=== PATIENT | female | born 1965 | race African-American/Black ===

== ENCOUNTER 2017-01-13 10:44 | Inpatient (IN) | payer OTHER ==
[2017-01-13] MEDS ORDERED: SODIUM CHLORIDE 0.9% 1,000 ML IV STA (11:06)
[2017-01-13 11:28] LABS: Basophils % (A) 0 %; CHCM 31.3; Eosinophils # (A) 0.2 k/uL (0-0.7); Eosinophils % (A) 3 %; HCT 38.7 % (34.0-46.0); HDW 2.65; HGB 12.3 gm/dL (11.4-16.0); Hypochromasia Slight; Luc # (Auto) 0.16; Luc % (Auto) 3; Lymphocytes # (A) 1.4 k/uL (1.0-4.8); Lymphocytes % (A) 23 %; MCH 26.4 pg (25.0-35.0); MCHC 31.8 g/dL (31.0-37.0); MCV 83.1 fL (80.0-100.0); Mean Platelet Volume 6.9; Monocytes # (A) 0.3 k/uL (0-1.0); Monocytes % (A) 5 %; Neutrophils # (A) 3.9 k/uL (1.3-7.7); Neutrophils % (A) 66 %; RBC 4.66 m/uL (3.80-5.40); WBC (Perox) 6.15
--- NOTE | 2017-01-13 11:35 | XR ---
EXAMINATION TYPE: XR chest 2V DATE OF EXAM ORDERED: 01/13/2017 11:31 AM HISTORY: Chest Pain. REFERENCE: None. FINDINGS: The lungs are clear. Pleural spaces are clear. Heart size is normal. IMPRESSION: NORMAL CHEST.
[2017-01-13 11:45] LABS: Prothrombin Time 9.8 sec (9.0-12.0)
[2017-01-13 11:46] LABS: Creatine Kinase 85 U/L (30-135); Partial Thromboplastin Time 22.6 sec (22.0-30.0)
[2017-01-13 11:48] LABS: ALT 20 U/L (9-52); AST 21 U/L (14-36); Alkaline Phosphatase 82 U/L (38-126); Anion Gap 9 mmol/L; Blood Urea Nitrogen 12 mg/dL (7-17); Calcium 9.9 mg/dL (8.4-10.2); Carbon Dioxide 30 mmol/L (22-30); Chloride 102 mmol/L (98-107); Glucose 102 mg/dL (74-99); Non-African American GFR(MDRD) >60 (>60 ml/min/1.73 sqM); Potassium 4.8 mmol/L (3.5-5.1); Sodium 141 mmol/L (137-145); Total Bilirubin 0.5 mg/dL (0.2-1.3); Total Protein 7.9 g/dL (6.3-8.2)
--- NOTE | 2017-01-13 11:56 | ED ---
General Adult HPI - General Chief complaint: Chest Pain Stated complaint: chest pain Time Seen by Provider: 01/13/17 10:51 Source: patient, RN notes reviewed, old records reviewed Mode of arrival: wheelchair Limitations: no limitations - History of Present Illness Initial comments: This is a 31-year-old female with chest pain. Patient has no medical she would does not see a doctor. No high blood pressure not cholesterol no diabetes per history. Complaining of left-sided chest pain range her back shows of breath, she states on and off for about 3 months noticed to be worse with exertion but no fevers cough or congestion. No significant shortness of breath. Patient states medications he takes Benadryl which she takes for itching, patient is a diffuse body rash spares her face with severe itching. Patient states she itches all the time and nothing makes it better. Patient denies any history of travel history, no known sick contacts. No fevers - Related Data Home Medications Medication Instructions Recorded Confirmed Ascorbic Acid [Vitamin C] 500 mg PO DAILY 01/13/17 01/13/17 Calcium/Magnesium/Zinc 1 tab PO DAILY 01/13/17 01/13/17 [Xohrdql-Ltgsncvma-Jcna Tablet] diphenhydrAMINE [Benadryl] 25 mg PO Q1H 01/13/17 01/13/17 Allergies Allergy/AdvReac Type Severity Reaction Status Date / Time No Known Allergies Allergy Verified 01/13/17 10:45 Review of Systems ROS Statement: Those systems with pertinent positive or pertinent negative responses have been documented in the HPI. ROS Other: All systems not noted in ROS Statement are negative. Past Medical History Past Medical History: No Reported History History of Any Multi-Drug Resistant Organisms: None Reported Past Surgical History: Cholecystectomy Past Psychological History: No Psychological Hx Reported Smoking Status: Never smoker Past Alcohol Use History: None Reported Past Drug Use History: None Reported General Exam Limitations: no limitations General appearance: alert, in no apparent distress Head exam: Present: atraumatic, normocephalic, normal inspection Eye exam: Present: normal appearance, PERRL, EOMI. Absent: scleral icterus, conjunctival injection, periorbital swelling ENT exam: Present: normal exam, mucous membranes moist Neck exam: Present: normal inspection. Absent: tenderness, meningismus, lymphadenopathy Respiratory exam: Present: normal lung sounds bilaterally. Absent: respiratory distress, wheezes, rales, rhonchi, stridor Cardiovascular Exam: Present: regular rate, normal rhythm, normal heart sounds. Absent: systolic murmur, diastolic murmur, rubs, gallop, clicks GI/Abdominal exam: Present: soft, normal bowel sounds. Absent: distended, tenderness, guarding, rebound, rigid Extremities exam: Present: normal inspection, full ROM, normal capillary refill. Absent: tenderness, pedal edema, joint swelling, calf tenderness Back exam: Present: normal inspection Neurological exam: Present: alert, oriented X3, CN II-XII intact Psychiatric exam: Present: normal affect, normal mood Skin exam: Present: warm, dry, intact, normal color. Absent: rash Course Vital Signs 01/13/17 01/13/17 01/13/17 10:45 12:49 14:15 Temperature 97.5 F L Pulse Rate 87 73 79 Respiratory 17 16 18 Rate Blood Pressure 136/92 146/76 134/62 O2 Sat by Pulse 100 91 L Oximetry EKG Findings - EKG Comments: EKG Findings:: EKG shows normal sinus rhythm rate of 80, UT 160, QRS 74, QTC 447 Medical Decision Making - Medical Decision Making 51 female to ER chest pain. Patient presents today to the ER with chest pain and a rash that she is regular. Rash for months. Patient had recent chest pain and multiple recent flights. Patient does have a CT which is positive for PE. Patient will be admitted for evaluation and treatment of large PE - Lab Data Result diagrams: 01/13/17 11:10 01/13/17 11:10 Lab Results 01/13/17 01/13/17 01/13/17 Range/Units 11:10 11:10 11:10 WBC 6.0 (3.8-10.6) k/uL RBC 4.66 (3.80-5.40) m/uL Hgb 12.3 (11.4-16.0) gm/dL Hct 38.7 (34.0-46.0) % MCV 83.1 (80.0-100.0) fL MCH 26.4 (25.0-35.0) pg MCHC 31.8 (31.0-37.0) g/dL RDW 15.0 (11.5-15.5) % Plt Count 339 (150-450) k/uL Neutrophils % 66 % Lymphocytes % 23 % Monocytes % 5 % Eosinophils % 3 % Basophils % 0 % Neutrophils # 3.9 (1.3-7.7) k/uL Lymphocytes # 1.4 (1.0-4.8) k/uL Monocytes # 0.3 (0-1.0) k/uL Eosinophils # 0.2 (0-0.7) k/uL Basophils # 0.0 (0-0.2) k/uL Hypochromasia Slight PT (9.0-12.0) sec INR (<1.1) APTT (22.0-30.0) sec D-Dimer (<0.60) mg/L FEU Sodium 141 (137-145) mmol/L Potassium 4.8 (3.5-5.1) mmol/L Chloride 102 (98-107) mmol/L Carbon Dioxide 30 (22-30) mmol/L Anion Gap 9 mmol/L BUN 12 (7-17) mg/dL Creatinine 0.85 (0.52-1.04) mg/dL Est GFR (MDRD) Af Amer >60 (>60 ml/min/1.73 sqM) Est GFR (MDRD) Non-Af >60 (>60 ml/min/1.73 sqM) Glucose 102 H (74-99) mg/dL Calcium 9.9 (8.4-10.2) mg/dL Magnesium 2.0 (1.6-2.3) mg/dL Total Bilirubin 0.5 (0.2-1.3) mg/dL AST 21 (14-36) U/L ALT 20 (9-52) U/L Alkaline Phosphatase 82 (38-126) U/L Total Creatine Kinase 85 (30-135) U/L CK-MB (CK-2) 0.5 (0.0-2.4) ng/mL CK-MB (CK-2) Rel Index 0.6 Troponin I <0.012 (0.000-0.034) ng/mL Total Protein 7.9 (6.3-8.2) g/dL Albumin 4.3 (3.5-5.0) g/dL Lipase 98 (23-300) U/L // Range/Units 11:10 WBC (3.8-10.6) k/uL RBC (3.80-5.40) m/uL Hgb (11.4-16.0) gm/dL Hct (34.0-46.0) % MCV (80.0-100.0) fL MCH (25.0-35.0) pg MCHC (31.0-37.0) g/dL RDW (11.5-15.5) % Plt Count (150-450) k/uL Neutrophils % % Lymphocytes % % Monocytes % % Eosinophils % % Basophils % % Neutrophils # (1.3-7.7) k/uL Lymphocytes # (1.0-4.8) k/uL Monocytes # (0-1.0) k/uL Eosinophils # (0-0.7) k/uL Basophils # (0-0.2) k/uL Hypochromasia PT 9.8 (9.0-12.0) sec INR 1.0 (<1.1) APTT 22.6 (22.0-30.0) sec D-Dimer 3.67 H (<0.60) mg/L FEU Sodium (137-145) mmol/L Potassium (3.5-5.1) mmol/L Chloride (98-107) mmol/L Carbon Dioxide (22-30) mmol/L Anion Gap mmol/L BUN (7-17) mg/dL Creatinine (0.52-1.04) mg/dL Est GFR (MDRD) Af Amer (>60 ml/min/1.73 sqM) Est GFR (MDRD) Non-Af (>60 ml/min/1.73 sqM) Glucose (74-99) mg/dL Calcium (8.4-10.2) mg/dL Magnesium (1.6-2.3) mg/dL Total Bilirubin (0.2-1.3) mg/dL AST (14-36) U/L ALT (9-52) U/L Alkaline Phosphatase (38-126) U/L Total Creatine Kinase (30-135) U/L CK-MB (CK-2) (0.0-2.4) ng/mL CK-MB (CK-2) Rel Index Troponin I (0.000-0.034) ng/mL Total Protein (6.3-8.2) g/dL Albumin (3.5-5.0) g/dL Lipase (23-300) U/L - Radiology Data Radiology results: report reviewed (Chest x-ray is negative CTAs positive for large PE), image reviewed Critical Care Time Critical Care Time: Yes Total Critical Care Time: 31 Disposition Clinical Impression: Chest pain, Acute pulmonary embolism Disposition: ADMITTED IP TO THIS [facility] Condition: Serious Referrals: Charisma Escamilla MD [Primary Care Provider] - 1-2 days
[2017-01-13 11:58] LABS: Creatine Kinase MB 0.5 ng/mL (0.0-2.4); Troponin I <0.012 ng/mL (0.000-0.034)
[2017-01-13] MEDS ORDERED: RX INFO: IV CONTRAST WAS GIVEN 1 EACH MISC MISCELLANE PRN (12:05)
[2017-01-13] MEDS ORDERED: FAMOTIDINE 20 MG/2 ML VIAL IV STA (12:05)
[2017-01-13] MEDS ORDERED: methylPREDNISolone SOD SUCCI 125 MG/2 ML VIAL IV STA (12:05)
[2017-01-13] MEDS ORDERED: hydrOXYzine HCL 25 MG TAB PO STA (12:05)
--- NOTE | 2017-01-13 13:56 | CT ---
EXAMINATION TYPE: CT angio chest DATE OF EXAM: 01/13/2017 1:43 PM COMPARISON: NONE HISTORY: chest pain CT DLP: 601.3 mGycm Automated exposure control for dose reduction was used. CONTRAST: CTA scan of the thorax is performed with IV Contrast, patient injected with 75 mL of Omnipaque 350, p ulmonary embolism protocol. . FINDINGS: There is a 3.9 mm soft tissue nodule adjacent to the major fissure on the right, best seen on image 84. There is a second 2.8 mm nodule in the superior segment of the right lower lobe, best se en on image 61. There is a 2.8 mm nodule in the posterior basal segment of the right lower lobe best seen on image 91. There is a 4.1 mm nodule in a subpleural location in the lateral basal segment of t he left lower lobe, best seen on image 101. There is a 2.3 mm nodule in the lateral aspect of the lef t lower lobe, best seen on image 73. Several other smaller lesions are noted. There is bilateral axillary adenopathy. The largest on the left measures 1.6 cm. The largest on the r ight measures 1.4 cm. There is no significant mediastinal, internal mammary or hilar adenopathy. The contrast bolus is suboptimal. No large emboli are seen. The aorta is normal in caliber without evidence of dissection. There is no pleural or pericardial flu id. The heart is not enlarged. There is a small hiatal hernia present. Visualized portions of the upper abdomen are otherwise unrema rkable. There there is hypertrophic spondylosis within the spine and there are some sclerotic endplate change s. There is an area of sclerosis in the lateral aspect of the sternum, best seen on image 36. IMPRESSION: 1. SUBOPTIMAL STUDY DEMONSTRATING A LARGE PULMONARY EMBOLI. 2. MULTIPLE PULMONARY NODULES WELL A SCLEROTIC LESION WITHIN THE RIGHT SIDE OF THE STERNUM SUSP ICIOUS FOR METASTASES. 3. BILATERAL AXILLARY ADENOPATHY.
[2017-01-13] MEDS ORDERED: MORPHINE SULFATE 4 MG/ML SYRINGE IV PRN (14:33)
[2017-01-13] MEDS ORDERED: HEPARIN SODIUM,PORCINE 5,000 UNIT/ML 1 ML VIAL IV ONE (14:33)
[2017-01-13] MEDS ORDERED: HEPARIN SODIUM,PORCINE 5,000 UNIT/ML 1 ML VIAL IV PRN (14:33)
[2017-01-13] MEDS ORDERED: NITROGLYCERIN SL TABS 0.4 MG TAB SUBLINGUAL PRN (14:33)
[2017-01-13] MEDS ORDERED: ASPIRIN 81 MG CHEW PO STA (14:33)
[2017-01-13] MEDS: HEPARIN SODIUM,PORCINE/D5W PMX 25,000 UNIT in DEXTROSE/WATER 1 500ML.BAG IV SCH (14:56)
[2017-01-13 17:00] VITALS: BMI 32.6
[2017-01-13 18:47] LABS: Creatine Kinase 82 U/L (30-135)
[2017-01-13 19:00] LABS: Creatine Kinase MB 0.4 ng/mL (0.0-2.4); Troponin I <0.012 ng/mL (0.000-0.034)
--- NOTE | 2017-01-13 19:27 | US ---
EXAMINATION TYPE: US venous doppler duplex LE BI DATE OF EXAM: 01/13/2017 7:09 PM COMPARISON: NONE CLINICAL HISTORY: dvt/pe. SIDE PERFORMED: Bilateral VESSELS IMAGED: Common Femoral Vein Deep Femoral Vein Greater Saphenous Vein * Femoral Vein Popliteal Vein Small Saphenous Vein * Proximal Calf Veins (* superficial vessels) Right Leg: Negative for DVT Left Leg: Negative for DVT IMPRESSION: Normal exam. No evidence of deep venous thrombosis in both legs.
[2017-01-13] MEDS ORDERED: HYDROcodone/APAP 5-325MG 1 EACH TAB PO PRN (19:49)
[2017-01-13] MEDS ORDERED: TEMAZEPAM 15 MG CAP PO PRN (19:49)
[2017-01-13] MEDS ORDERED: ALPRAZolam 0.25 MG TAB PO PRN (19:49)
[2017-01-13] MEDS: diphenhydrAMINE 25 MG CAP PO PRN (20:50)
[2017-01-13] MEDS: diphenhydrAMINE 25 MG CAP PO SCH (21:21)
[2017-01-14 00:03] LABS: Creatine Kinase 69 U/L (30-135)
[2017-01-14 00:16] LABS: Creatine Kinase MB 0.3 ng/mL (0.0-2.4); Troponin I <0.012 ng/mL (0.000-0.034)
[2017-01-14 06:06] LABS: Basophils % (A) 0 %; CH 25.7; CHCM 30.6; Eosinophils # (A) 0.1 k/uL (0-0.7); Eosinophils % (A) 1 %; HCT 36.4 % (34.0-46.0); HGB 11.5 gm/dL (11.4-16.0); Hypochromasia Moderate; Luc # (Auto) 0.19; Luc % (Auto) 2; Lymphocytes # (A) 1.1 k/uL (1.0-4.8); Lymphocytes % (A) 11 %; MCH 26.6 pg (25.0-35.0); MCHC 31.7 g/dL (31.0-37.0); Mean Platelet Volume 7.2; Monocytes # (A) 0.5 k/uL (0-1.0); Monocytes % (A) 5 %; Neutrophils # (A) 8.3 k/uL (1.3-7.7); Neutrophils % (A) 82 %; RBC 4.34 m/uL (3.80-5.40); WBC 10.1 k/uL (3.8-10.6); WBC (Perox) 10.95
[2017-01-14 06:18] LABS: INR 1.1 (<1.1); Partial Thromboplastin Time 76.7 sec (22.0-30.0); Prothrombin Time 10.7 sec (9.0-12.0)
[2017-01-14] MEDS: HEPARIN SODIUM,PORCINE/D5W PMX 25,000 UNIT in DEXTROSE/WATER 1 500ML.BAG IV SCH (06:26)
[2017-01-14] MEDS: PANTOPRAZOLE 40 MG TABLET PO SCH (06:27)
[2017-01-14] MEDS: diphenhydrAMINE 25 MG CAP PO PRN (06:29)
[2017-01-14 06:32] LABS: Anion Gap 10 mmol/L; Calcium 9.4 mg/dL (8.4-10.2); Carbon Dioxide 23 mmol/L (22-30); Chloride 106 mmol/L (98-107); Cholesterol 184 mg/dL (<200); Glucose 154 mg/dL (74-99); HDL Cholesterol 58 mg/dL (40-60); Non-African American GFR(MDRD) >60 (>60 ml/min/1.73 sqM); Sodium 139 mmol/L (137-145); Triglycerides 97 mg/dL (<150)
[2017-01-14 06:52] LABS: Blood Urea Nitrogen 10 mg/dL (7-17); Potassium 4.5 mmol/L (3.5-5.1)
[2017-01-14] MEDS ORDERED: ASPIRIN 325 MG TAB PO SCH (09:00)
--- NOTE | 2017-01-14 09:49 | HP ---
DATE OF ADMISSION: 01/13/2017 CHIEF COMPLAINT: Chest pain as well as shortness of breath. HISTORY OF PRESENT ILLNESS: This 51-year-old lady with a past medical history of cholecystectomy, tubal ligation, and other multiple medical problems, not being followed by primary care physician in outpatient setting presented to [facility] Emergency room with complaints of chest pain left-sided and some shortness of breath. The shortness of breath has been going on for several months. The patient though it was something related to abdomen. The patient was taking Benadryl for itching. The patient was evaluated in the ER. D-dimer was found to be elevated at 3.67. Chest angio CT was done, which showed suboptimal technique, but reported as a large pulmonary embolus, multiple pulmonary nodules scattered were found and bilateral axillary adenopathy was noted. The patient was admitted for evaluation and treatment. The venous Doppler showed no DVT. There is no history of fever, rigors. No history of headache, loss of consciousness or seizures. PAST MEDICAL HISTORY: History of cholecystectomy, tubal ligation. MEDICATIONS: 1. Calcium with vitamin zinc. 2. Vitamin C. 3. Benadryl p.r.n. ALLERGIES: None. FAMILY HISTORY: History of pulmonary embolism and clotting disorder in mother. History of cancer, diabetes, heart problems, breast cancer, kidney failure. SOCIAL HISTORY: No history of smoking. No history of alcohol intake. Patient is working two jobs and stands a lot even moves around according to her. The patient flew to [place] last year. REVIEW OF SYSTEMS: ENT: No diminished hearing or diminished vision. CARDIOVASCULAR: As mentioned earlier. RESPIRATORY: As mentioned earlier. GI: No nausea. : No dysuria. NERVOUS SYSTEM: No numbness or weakness. ALLERGY/IMMUNOLOGY: No asthma or hayfever. MUSCULOSKELETAL: As mentioned earlier. HEMATOLOGY: No history of anemia. ENDOCRINE: No history of diabetes or hypothyroidism. CONSTITUTIONAL: As mentioned earlier. DERMATOLOGY: Negative. RHEUMATOLOGY: Negative. PSYCHIATRY: As mentioned earlier. PHYSICAL EXAMINATION: Alert and oriented x3. Pulse 82, blood pressure 149/67, respirations 18, temperature 98.6, pulse ox 97% on 2-L. HEENT: Conjunctivae normal. Oral mucosa moist. NECK: No jugular venous distention. No thyroid enlargement, no carotid bruit, no lymph node enlargement. CARDIOVASCULAR: S1 and S2, muffled. No S3, no S4. RESPIRATORY: Breath sounds diminished at the bases. No rhonchi, no crackles. ABDOMEN: Soft, nontender, no mass palpable. LEGS: No edema, no swelling. NERVOUS SYSTEM: Higher function as mentioned. Moves all four limbs. No focal motor deficits. LYMPHATIC: No lymphadenopathy in the neck, axillae or groin. SKIN: No ulcer, rash or bleeding. LABS: CBC within normal limits. D-dimer is 3.67. Otherwise, glucose 102. ASSESSMENT: 1. Possible acute pulmonary embolism with shortness of breath. 2. Increased d-dimer. 3. Increased random blood sugar. 4. Family history of coagulopathy. 5. Cholecystectomy. 6. Tubal ligation. 7. History of anxiety. RECOMMENDATIONS AND DISCUSSION: In this 51-year-old woman who presents with multiple complex medical issues, we will monitor the patient closely. We will initiate IV heparin per PE protocol, obtained consultation with Dr. Hodges. Otherwise, monitor PTT closely. Other than that, I would recommend ultrasound, which has been done which is negative. I also recommend initiating the patient on Xarelto once the patient is anticoagulated. Guarded prognosis because of multiple complex medical issues. Further recommendations to follow. I also recommend the patient follow up with a primary physician closely as well. The patient and family understands and agrees. The patient will need further genetic testing post anticoagulation. ANAMIKA
--- NOTE | 2017-01-14 10:44 | P.CNPUL ---
History of Present Illness Consult date: 01/14/17 Requesting physician: Aneta Aleman Reason for consult: dyspnea, chest pain Chief complaint: Shortness of breath and chest pain History of present illness: This is a 52-year-old -[place] female with no previous medical history except for obesity, no previous history of underlying cardiac or pulmonary disease, patient works at [employer], and while at work, the patient had a sudden episode of substernal pressure, and shortness of breath. Patient came into the ER, and apparently she has been having these intermittent episodes for the last few months. CT of the chest was done in the ER, and this was read by Dr. Rodrigez, and a very unusual fashion, in the body of the report and there was no evidence of pulmonary embolism, but in the bottom of the report which is the conclusion, he mentioned evidence of large pulmonary emboli. I reviewed the CT of the chest myself, and I saw no evidence whatsoever of pulmonary emboli, then I called Dr. Rodrigez, and he agreed that there was a confusing report hence he added an addendum which specifically stated that there is no evidence of pulmonary emboli. In the meantime I discontinued the patient's heparin, I did recommend a VQ scan to put the issue to rest, because the CT study was suboptimal. The nodules mentioned on the CT of the chest are all tiny and nonspecific, and my only recommendation about the nodules would be to consider repeat CT of the chest in the next 6 months. I have also discussed the axillary lymphadenopathy and this may have to be addressed on outpatient basis by her primary care physician were and the patient may need possibly a PET scan to see if these axillary nodes are hypermetabolic or even possibly consider ultrasound guided biopsy or excision of one of these nodes. The sternal area which was mentioned on the CT of the chest is again nonspecific, and my only recommendation would be outpatient bone scan. Patient also needs a mammogram to make sure that we are not dealing with breast cancer with possible metastases. As far as her chest pain is concerned, none of the findings on the CT of the chest to explain her chest pain, and I will go ahead and recommended cardiac evaluation on this patient. Review of Systems 14 point review of systems were obtained, please refer to pertinent positives and negatives in HPI. Past Medical History Past Medical History: No Reported History History of Any Multi-Drug Resistant Organisms: None Reported Past Surgical History: Cholecystectomy, Tubal Ligation Past Anesthesia/Blood Transfusion Reactions: No Reported Reaction Additional Past Anesthesia/Blood Transfusion Reaction / Comment(s): Patient stated that she has not had a blood transfusion. Also had no reaction to anesthesia in the past Past Psychological History: No Psychological Hx Reported, Anxiety Additional Psychological History / Comment(s): Mild anxiety. Smoking Status: Never smoker Past Alcohol Use History: None Reported Past Drug Use History: None Reported - Past Family History Mother Family Medical History: Cancer, Diabetes Mellitus Additional Family Medical History / Comment(s): "heart problems". Breast cancer. Kidney failure Medications and Allergies Home Medications Medication Instructions Recorded Confirmed Type Ascorbic Acid [Vitamin C] 500 mg PO DAILY 01/13/17 01/13/17 History Calcium/Magnesium/Zinc 1 tab PO DAILY 01/13/17 01/13/17 History [Bprfrvq-Qphxxdhxj-Zllx Tablet] diphenhydrAMINE [Benadryl] 25 mg PO Q1H 01/13/17 01/13/17 History Allergies Allergy/AdvReac Type Severity Reaction Status Date / Time No Known Allergies Allergy Verified 01/13/17 10:45 Physical Exam Vitals: Vital Signs Temp Pulse Pulse Resp BP BP Pulse Ox 01/14/17 08:00 97.2 F L 68 18 125/66 100 01/14/17 04:00 97.5 F L 77 17 134/78 99 01/14/17 00:00 97.1 F L 81 17 121/66 97 01/13/17 20:00 97.1 F L 85 17 129/69 99 01/13/17 16:46 97.7 F 82 16 139/91 100 01/13/17 15:57 98.6 F 82 18 149/67 97 Intake and Output 01/13/17 01/14/17 01/14/17 22:59 06:59 14:59 Intake Total 862 498.361 240 Output Total 400 1800 Balance 462 -1301.639 240 Intake: IV 160 Sodium Chloride 0.9% 1, 160 000 ml @ 999 mls/hr IV . Q1H1M [facility] Rx#:[id number] Intake, IV Titration 498.361 Amount Heparin Sodium,Porcine/ 498.361 D5w Pmx 25,000 unit In Dextrose/Water 1 500ml. bag @ 18 UNITS/KG/HR 32. 16 mls/hr IV .[id number] [facility] Rx#:[id number] Oral 702 240 Output: Urine 400 1800 Other: # Voids 1 0 Weight 89 kg 106.3 kg Physical Exam HEENT:[Neck is supple.] [No neck masses.] [No thyromegaly.] [No JVD.] Chest: [Clear throughout, no crackles, no rhonchi, no wheezes.] Cardiac Exam: [Normal S1 and S2, no S3 gallop, no murmur.] Abdomen: [Soft, nontender, no megaly, no rebound, no guarding, normal bowel sounds.] Extremities: [No clubbing, no edema, no cyanosis.] Neurological Exam: [No focal neurologic deficit.] Results - Laboratory Findings CBC and BMP: 01/14/17 05:48 01/14/17 05:48 PT/INR, D-dimer PT 10.7 sec (9.0-12.0) 01/14/17 05:48 INR 1.1 (<1.1) 01/14/17 05:48 D-Dimer 3.67 mg/L FEU (<0.60) H 01/13/17 11:10 Abnormal lab findings: Abnormal Labs 01/13/17 01/14/17 01/14/17 23:16 05:48 05:48 Neutrophils # 8.3 H APTT 74.9 H 76.7 H Glucose LDL Cholesterol, Calc 01/14/17 05:48 Neutrophils # APTT Glucose 154 H LDL Cholesterol, Calc 107 H - Diagnostic Findings CT scan - chest: image reviewed (Please refer to full note as mentioned earlier on the CT of the chest findings.) Assessment and Plan Plan: Impression: 1 acute episode of shortness of breath and chest pain, with elevated d-dimer, but the CT of the chest was suboptimal, and clearly did not show any evidence of large pulmonary emboli to explain her symptoms. Please refer to the addendum on the CT of the chest. In the meantime I will recommend VQ scan, and I will recommend cardiac evaluation. 2 nonspecific pulmonary nodules noted on CT of the chest all the nodules are tiny and again nonspecific, however I would recommend repeat CT of the chest in 6 months. 3 axillary lymphadenopathy which needs to be addressed on an outpatient basis by the primary care physician. May have to consider a PET scan on outpatient basis and possibly ultrasound guided needle biopsy of axillary nodes or surgical evaluation. 4 family history of breast cancer (mother) patient will need at least a mammogram on outpatient basis. Recommendation: Stop heparin, VQ scan, cardiac consultation, outpatient follow- up with the primary care physician regarding her axillary lymphadenopathy, mammography, consider bone scan and PET scan on outpatient basis. Time with Patient: Greater than 30
--- NOTE | 2017-01-14 11:32 | NM ---
EXAMINATION TYPE: NM pul vent and perfuse DATE OF EXAM: 01/14/2017 11:21 AM COMPARISON: NONE HISTORY: Shortness of breath. TECHNIQUE: Utilizing inhalation of 71.3 mCi Tc 99m DTPA aerosol and intravenous injection of 5.5 mCi of Tc 99m MAA, ventilation and perfusion images are acquired post injection in multiple projections. FINDINGS: Lung ventilation and perfusion is normal. There are no VQ mismatches. IMPRESSION: NORMAL NUCLEAR MEDICINE VENTILATION/PERFUSION LUNG SCAN.
[2017-01-14] MEDS: ASCORBIC ACID 500 MG TAB PO SCH (12:09)
[2017-01-14] MEDS: MULTIVITAMINS, THERA 1 EACH TAB PO SCH (12:09)
--- NOTE | 2017-01-14 14:33 | CONS ---
DATE OF CONSULTATION: Mrs. Shi is a 51-year-old female who is admitted through the emergency room with the complaint of intermittent chest pain. The patient has been having chest pain on and off for the last couple of days, actually the last 3 to 4 weeks, but yesterday the pain was more severe. The patient says the pain is in the substernal area and radiates to the back. It is sharp pain, comes and goes. The pain is associated with some local tenderness. Patient denies any nausea and vomiting. After admission to the ER the patient underwent CT scan. There was some confusion in the report about the pulmonary embolism. Patient also underwent a VQ scan, but there is no evidence of pulmonary embolism. Patient has small pulmonary nodules and axillary lymphadenopathy. Patient denies any history of diabetes or hypertension. Past medical history includes history of cholecystectomy, tubal ligation. REVIEW OF SYSTEMS: Patient is moderately active physically and without any symptoms of angina. SMOKING HISTORY: Patient never a smoker. Patient's home medications included vitamin C and Benadryl and can calcium and magnesium. Physical examinations at present reveals a 51-year-old female who does not appear to be in any acute distress. Patient's blood pressure is 125/66 mmHg, heart rate is 68 per minute. Head/ENT examination is negative. Neck is supple. There is no increase in jugular venous pressure. Both the carotid pulses are felt. There is no bruit. Chest is symmetrical. HEART: The PMI is not felt. First and second heart sounds are normal. There is no evidence of any murmur. Lungs are clinically clear to auscultation and percussion. Abdomen is soft. Liver and spleen are not enlarged. Bowel sounds are heard. EXTREMITIES: Peripheral troponins are 2+. EKG shows a normal sinus rhythm without any acute ischemic changes. Cardiac enzymes are normal. FINAL IMPRESSION: This patient has been having intermittent chest pain, which is suggestive of atypical chest wall pain. There is a mild chest wall tenderness noted. The work-up for pulmonary embolism is negative. RECOMMENDATIONS: We will obtain echo and Doppler study, treat the patient symptomatically with Motrin. If the patient's chest pains are better, we will schedule her for dobutamine echocardiographic study on Monday.
--- NOTE | 2017-01-14 15:41 | ECHOF ---
Referral Reason:PE MEASUREMENTS -------- HEIGHT: 165.1 cm WEIGHT: 106.1 kg BP: 134/62 IVSd: 0.8 cm (0.6 - 1.1) LVIDd: 4.4 cm (3.9 - 5.3) LVPWd: 1.0 cm (0.6 - 1.1) LVIDs: 2.7 cm LA Diam: 2.5 cm (2.7 - 3.8) RVIDd: 2.3 cm (< 3.3) LAESV Index (A-L): 27.43 ml/m Ao Diam: 2.9 cm (2.0 - 3.7) AV Cusp: 2.0 cm (1.5 - 2.6) EPSS: 0.5 cm MV E Derik: 0.79 m/s MV DecT: 291 ms MV A Derik: 0.70 m/s MV E/A Ratio: 1.14 RAP: 5.00 mmHg RVSP: 26.84 mmHg MV EF SLOPE: 94.91 mm/s (70 - 150) MV EXCURSION: 20.95 mm (> 18.000) FINDINGS -------- Sinus rhythm. This was a technically good study. The left ventricular size is normal. Left ventricular wall thickness is normal. Overall left ventricular systolic function is normal with, an EF between 60 - 65 %. The right ventricle is normal in size. Normal LA size by volume 22+/-6 ml/m2. The right atrium is normal in size. The aortic valve is trileaflet and appears structurally normal. Mild mitral regurgitation is present. Mild tricuspid regurgitation present. Right ventricular systolic pressure is normal at < 35 mmHg. The pulmonic valve is normal. There is no pulmonic regurgitation present. The aortic root size is normal. Normal inferior vena cava with normal inspiratory collapse consistent with estimated right atrial pressure of 5 mmHg. The pericardium is normal. CONCLUSIONS -------- 1. Sinus rhythm. 2. Mild mitral regurgitation is present. 3. Mild tricuspid regurgitation present. 4. Right ventricular systolic pressure is normal at < 35 mmHg. 5. The aortic root size is normal. 6. Normal inferior vena cava with normal inspiratory collapse consistent with estimated right atrial pressure of 5 mmHg. 7. The pericardium is normal. 8. This was a technically good study. 9. The left ventricular size is normal. 10. Left ventricular wall thickness is normal. 11. Overall left ventricular systolic function is normal with, an EF between 60 - 65 %. 12. The right ventricle is normal in size. 13. Normal LA size by volume 22+/-6 ml/m2. 14. The right atrium is normal in size. 15. The aortic valve is trileaflet and appears structurally normal. TRANSCRIPT EVALUATOR: Isabel Merritt RDCS
[2017-01-14] MEDS: IBUPROFEN 400 MG TAB PO SCH ×2 (16:03→21:10)
[2017-01-15] MEDS: PANTOPRAZOLE 40 MG TABLET PO SCH (06:31)
[2017-01-15 06:48] LABS: Basophils % (A) 1 %; CH 25.9; CHCM 30.7; Eosinophils # (A) 0.1 k/uL (0-0.7); Eosinophils % (A) 2 %; HDW 2.58; HGB 11.6 gm/dL (11.4-16.0); Hypochromasia Moderate; Luc # (Auto) 0.19; Luc % (Auto) 3; Lymphocytes # (A) 2.2 k/uL (1.0-4.8); Lymphocytes % (A) 30 %; MCH 25.8 pg (25.0-35.0); MCHC 30.5 g/dL (31.0-37.0); MCV 84.7 fL (80.0-100.0); Mean Platelet Volume 7.8; Monocytes # (A) 0.5 k/uL (0-1.0); Monocytes % (A) 7 %; Neutrophils # (A) 4.4 k/uL (1.3-7.7); Neutrophils % (A) 59 %; RBC 4.49 m/uL (3.80-5.40); RDW 15.5 % (11.5-15.5); WBC 7.4 k/uL (3.8-10.6); WBC (Perox) 8.09
[2017-01-15 07:24] LABS: Appearance,Urine Clear (Clear); Bilirubin,Urine Negative (Negative); Glucose,Urine (UA) Negative (Negative); Ketones,Urine Negative (Negative); Leukocyte Esterase,Urine Negative (Negative); Nitrite,Urine Negative (Negative); PH, Urine 5.5 (5.0-8.0); Protein,Urine Trace (Negative); Specific Gravity,Urine 1.022 (1.001-1.035); UA Billing (MACRO vs. MICRO) CHEM; Urobilinogen,Urine <2.0 mg/dL (<2.0)
[2017-01-15 07:30] LABS: Anion Gap 10 mmol/L; Blood Urea Nitrogen 11 mg/dL (7-17); Calcium 9.1 mg/dL (8.4-10.2); Carbon Dioxide 25 mmol/L (22-30); Chloride 106 mmol/L (98-107); Glucose 102 mg/dL (74-99); Non-African American GFR(MDRD) >60 (>60 ml/min/1.73 sqM); Potassium 4.4 mmol/L (3.5-5.1); Sodium 141 mmol/L (137-145)
--- NOTE | 2017-01-15 07:54 | PN ---
DATE OF SERVICE: 01/14/2017 This 51-year-old woman who was admitted with shortness of breath, and multiple symptomatology was reported to have large acute pulmonary embolism on the first CT scan. Apparently, the CAT scan report was revised later showing as no pulmonary embolism and Dr. Hodges from pulmonary ordered a VQ scan which showed normal nuclear medicine ventilation perfusion lung scan. The patient apparently was discontinued at this time. No palpitations. No shortness of breath. Mild chest pain was complained of. Cardiology is planning a stress test. Past medical history reviewed. Physical examination: Alert and oriented x3. Pulse 81, blood pressure 115/80, respiration 18, temperature 98.4, pulse ox 100% on 2 L. HEENT: Conjunctivae normal. NECK: No jugular venous distention. CARDIOVASCULAR: S1, S2 muffled. RESPIRATORY: Breath sounds diminished at the bases. No rhonchi, no crackles. ABDOMEN: Soft, nontender. No mass palpable. Legs: No edema. No swelling. Nervous system: Higher functions as mentioned earlier. Moves all four limbs. No focal motor or sensory deficits. LYMPHATICS: No lymph nodes palpable in the neck, axillae or groin. SKIN: No ulcer, rash or bleeding. LABS: CBC within normal limits. Otherwise, PTT noted. The glucose 154, LDL is 107. ASSESSMENT: 1. Shortness of breath and chest pain for further evaluation, large pulmonary embolism unlikely. 2. Increased d-dimer. 3. Increased random blood sugar. 4. Family history of coagulopathy. 5. Cholecystectomy. 6. History of tubal ligation. 7. History of anxiety. 8. Increased LDL. 9. Obesity with body mass index of 39. 10. FULL CODE. RECOMMENDATIONS AND DISCUSSION: In this 51-year-old woman who presented with multiple complex medical issues, we will monitor the patient closely, continue the current medications, continue symptomatic treatment. Otherwise, please refer to Dr. Hodges's note for further evaluation. Discussed with the patient and cardiology saw the patient. Possible stress test. Continue to monitor. Further recommendations to follow. Guarded prognosis and carpet. Work-up for pulmonary embolus was negative as reported by cardiology. See multiple reports for further details. Radiology reports and Dr. Hodges's for further information. [facility]
[2017-01-15] MEDS: IBUPROFEN 400 MG TAB PO SCH ×3 (08:21→21:54)
[2017-01-15] MEDS: diphenhydrAMINE 25 MG CAP PO PRN ×3 (08:21→22:16)
--- NOTE | 2017-01-15 11:14 | P.PN ---
Subjective Principal diagnosis: Atypical chest pain, possibly musculoskeletal. his is a 52-year-old -[place] female with no previous medical history except for obesity, no previous history of underlying cardiac or pulmonary disease, patient works at [employer], and while at work, the patient had a sudden episode of substernal pressure, and shortness of breath. Patient came into the ER, and apparently she has been having these intermittent episodes for the last few months. CT of the chest was done in the ER, and this was read by Dr. Rodrigez, and a very unusual fashion, in the body of the report and there was no evidence of pulmonary embolism, but in the bottom of the report which is the conclusion, he mentioned evidence of large pulmonary emboli. I reviewed the CT of the chest myself, and I saw no evidence whatsoever of pulmonary emboli, then I called Dr. Rodrigez, and he agreed that there was a confusing report hence he added an addendum which specifically stated that there is no evidence of pulmonary emboli. In the meantime I discontinued the patient's heparin, I did recommend a VQ scan to put the issue to rest, because the CT study was suboptimal. The nodules mentioned on the CT of the chest are all tiny and nonspecific, and my only recommendation about the nodules would be to consider repeat CT of the chest in the next 6 months. I have also discussed the axillary lymphadenopathy and this may have to be addressed on outpatient basis by her primary care physician were and the patient may need possibly a PET scan to see if these axillary nodes are hypermetabolic or even possibly consider ultrasound guided biopsy or excision of one of these nodes. The sternal area which was mentioned on the CT of the chest is again nonspecific, and my only recommendation would be outpatient bone scan. Patient also needs a mammogram to make sure that we are not dealing with breast cancer with possible metastases. As far as her chest pain is concerned, none of the findings on the CT of the chest to explain her chest pain, and I will go ahead and recommended cardiac evaluation on this patient. Patient was seen today on 01/15/2017, doing quite well, continues to have some chest pain and some tenderness over the anterior chest wall mostly over the sternum. Seen by cardiology and scheduled to have a dobutamine stress test tomorrow. No shortness of breath no cough no wheezing. No nausea no vomiting no abdominal pain no fever no chills no hemoptysis. Discussed with her today though for report of her CT of the chest and the VQ scan. Clearly there is no evidence of thromboembolic disease. I explained to the patient that she should have follow-up with her primary care regarding her sternal abnormality on the CT , and that should be addressed on an outpatient basis by having a bone scan, and her lymph nodes in the axillary region may have to be addressed by her primary care physician by doing a PET scan or even referral to interventional radiology for possible ultrasound-guided needle aspiration of one of the lymph nodes in the right axillary region. Objective - Vital Signs Vital signs: Vital Signs Temp 97 F L 01/15/17 08:00 Pulse 75 01/15/17 08:00 Resp 16 01/15/17 08:00 BP 118/79 01/15/17 08:00 Pulse Ox 100 01/15/17 08:00 Intake & Output 01/14/17 01/15/17 01/15/17 18:59 06:59 18:59 Intake Total 480 480 480 Balance 480 480 480 Weight 107.5 kg Intake: Oral 480 480 480 Other: # Voids 0 # Bowel Movements 0 - Exam Physical Exam HEENT:[Neck is supple.] [No neck masses.] [No thyromegaly.] [No JVD.] Chest: [Clear throughout, no crackles, no rhonchi, no wheezes.] Cardiac Exam: [Normal S1 and S2, no S3 gallop, no murmur.] Abdomen: [Soft, nontender, no megaly, no rebound, no guarding, normal bowel sounds.] Extremities: [No clubbing, no edema, no cyanosis.] Axillary regions were examined yesterday, minimal lymphadenopathy noted bilaterally. No tenderness, no discharge noted. Neurological Exam: [No focal neurologic deficit.] - Labs CBC & Chem 7: 01/15/17 05:41 01/15/17 05:41 Labs: Abnormal Lab Results - Last 24 Hours (Table) 01/15/17 01/15/17 01/15/17 Range/Units 05:41 05:41 07:00 MCHC 30.5 L (31.0-37.0) g/dL Glucose 102 H (74-99) mg/dL Urine Protein Trace H (Negative) Urine Opiates Screen (NotDetected) 01/15/17 Range/Units 07:00 MCHC (31.0-37.0) g/dL Glucose (74-99) mg/dL Urine Protein (Negative) Urine Opiates Screen Detected H (NotDetected) Assessment and Plan Plan: Impression: 1 acute episode of shortness of breath and chest pain, with elevated d-dimer, but the CT of the chest was suboptimal, and clearly did not show any evidence of large pulmonary emboli to explain her symptoms. Please refer to the addendum on the CT of the chest. VQ scan was normal. And that virtually ruled out pulmonary embolism. 2 nonspecific pulmonary nodules noted on CT of the chest all the nodules are tiny and again nonspecific, however I would recommend repeat CT of the chest in 6 months. Patient was made aware to see me in the next 5-6 months and I will recommend repeat CT of the chest to follow-up on these nonspecific pulmonary nodules which are felt most likely benign unless proven otherwise. 3 axillary lymphadenopathy which needs to be addressed on an outpatient basis by the primary care physician. May have to consider a PET scan on outpatient basis and possibly ultrasound guided needle biopsy of axillary nodes or surgical evaluation. Patient should also have a mammogram on outpatient basis 4 family history of breast cancer (mother) patient will need at least a mammogram on outpatient basis. Recommendation: Continue treatment plan as per the admitting physician and as per cardiology, no active pulmonary issues, we'll continue to follow. Time with Patient: Less than 30
[2017-01-15] MEDS: ASCORBIC ACID 500 MG TAB PO SCH (12:22)
[2017-01-15] MEDS: MULTIVITAMINS, THERA 1 EACH TAB PO SCH (12:22)
--- NOTE | 2017-01-15 15:17 | PN ---
This patient is admitted with intermittent chest discomfort suggestive of atypical angina. Patient is feeling better. There is no chest pain. No shortness of breath. Blood pressure is 125/68 mm of mercury. First and second heart sounds are normal. Lungs are clinically clear to auscultation and percussion. Patient will be evaluated with the stress test tomorrow.
--- NOTE | 2017-01-15 20:24 | PN ---
DATE OF SERVICE: 01/15/2017 This 51-year-old woman who was admitted with shortness of breath and is being closely monitored. Apparently there is no evidence of any PE according to Dr. Hodges. Please refer to the updated dictation for Dr. Rodrigez. Dr. Oshea is planning possible stress test tomorrow. No chest pain. No palpitations. On exam, alert and oriented times three. Pulse 78. Blood pressure 120/60. Respiratory rate 16. Temperature 97.1, pulse ox 100% on 2 L. HEENT: Conjunctivae normal. NECK: No jugular venous distention. CARDIOVASCULAR: S1, S2 muffled. RESPIRATORY: Breath sounds diminished at the bases. No rhonchi, no crackles. ABDOMEN: Soft. Nontender. Legs: No edema. No swelling. CENTRAL NERVOUS SYSTEM: No focal deficits. LABS: LDL is 107. Other labs are noted. ASSESSMENT: 1. Shortness of breath with chest pain for evaluation, no evidence of pulmonary emboli, rule out coronary artery disease. 2. Increased d-dimer. 3. Increased random blood sugar. 4. Family history of coagulopathy. 5. Cholecystectomy. 6. History of tubal ligation. 7. History of anxiety. 8. Increased LDH. 9. Obesity, body mass index of 39. 10. FULL CODE. RECOMMENDATIONS AND DISCUSSION: Continue current medications, continue with monitoring and symptomatic treatment. Otherwise, I would recommend to add Lipitor to the current regimen. Other than that, I would also recommend closely follow with pulmonary and cardiology. Positive stress test. Guarded prognosis. Further recommendations to follow. Please refer to Dr. Hodges's dictations for further information. [facility]
[2017-01-15] MEDS ORDERED: ATORVASTATIN 10 MG TAB PO SCH (21:00)
[2017-01-15] MEDS: methylPREDNISolone SOD SUCCI 40 MG/ML 1 ML VIAL IV SCH (23:13)
[2017-01-16] MEDS ORDERED: DOBUTamine DRIP for NUC MED 500 MG in DEXTROSE/WATER 1 250ML.BAG IV ONE (06:00)
[2017-01-16 07:13] LABS: Basophils % (A) 0 %; CH 25.8; Eosinophils % (A) 1 %; HCT 40.3 % (34.0-46.0); HDW 2.69; HGB 12.6 gm/dL (11.4-16.0); Hypochromasia Slight; Luc # (Auto) 0.04; Luc % (Auto) 1; Lymphocytes # (A) 0.6 k/uL (1.0-4.8); Lymphocytes % (A) 9 %; MCH 26.1 pg (25.0-35.0); MCHC 31.4 g/dL (31.0-37.0); MCV 83.2 fL (80.0-100.0); Mean Platelet Volume 7.1; Monocytes # (A) 0.1 k/uL (0-1.0); Monocytes % (A) 1 %; Neutrophils % (A) 89 %; RBC 4.84 m/uL (3.80-5.40); RDW 14.9 % (11.5-15.5); WBC 6.8 k/uL (3.8-10.6); WBC (Perox) 7.46
[2017-01-16 07:31] LABS: Anion Gap 10 mmol/L; Blood Urea Nitrogen 9 mg/dL (7-17); Calcium 9.8 mg/dL (8.4-10.2); Carbon Dioxide 28 mmol/L (22-30); Chloride 103 mmol/L (98-107); Glucose 168 mg/dL (74-99); Non-African American GFR(MDRD) >60 (>60 ml/min/1.73 sqM); Sodium 141 mmol/L (137-145)
[2017-01-16 07:53] LABS: Prothrombin Time 10.2 sec (9.0-12.0)
[2017-01-16] MEDS: methylPREDNISolone SOD SUCCI 40 MG/ML 1 ML VIAL IV SCH (08:06)
[2017-01-16] MEDS: INSULIN LISPRO (humaLOG) 300 UNIT/3 ML VIAL SQ SCH ×2 (08:09→12:08)
[2017-01-16 08:13] VITALS: RESP 16
--- NOTE | 2017-01-16 10:09 | P.PN ---
Subjective Principal diagnosis: Atypical chest pain This is a pleasant -Citizen Of [place] female 51 years of age who was admitted through the emergency room with complaints of atypical chest discomfort. Patient underwent before meals he scan with subsequent VQ scan with no evidence of pulmonary embolism. There was a small pulmonary nodule as well as axillary lymphadenopathy noted. Cardiac enzymes and troponins have been negative. EKG did not reveal any acute changes. Patient was seen in consultation by Dr. VC Oshea and recommended today to undergo echocardiogram as well as dobutamine echocardiographic study. At the time of my examination this morning, patient states she had a mild sharp pain in the center of her chest, otherwise symptom- free. Blood pressure this morning 118/82 heart rate in the 70s. Objective - Vital Signs Vital signs: Vital Signs Temp 97.1 F L 01/16/17 08:00 Pulse 75 01/16/17 08:00 Resp 16 01/16/17 08:00 BP 117/83 01/16/17 08:00 Pulse Ox 100 01/16/17 08:00 Intake & Output 01/15/17 01/16/17 01/16/17 18:59 06:59 18:59 Intake Total 960 20 Balance 960 20 Weight 106.8 kg Intake: IV 20 0.9 20 Oral 960 Other: # Voids 1 # Bowel Movements 0 0 - Exam PHYSICAL EXAMINATION: HEENT: Head is atraumatic, normocephalic. Pupils equal, round. Neck is supple. There is no elevated jugular venous pressure. HEART EXAMINATION: Heart S1, S2 normal. No murmur or gallop heard. CHEST EXAMINATION: Lungs are clear to auscultation and precussion. No chest wall tenderness is noted on palpation or with deep breathing. ABDOMEN: Soft, nontender. Bowel sounds are heard. No organomegaly noted. EXTREMITIES: 2+ peripheral pulses with no evidence of peripheral edema and no calf tenderness noted. NEUROLOGIC patient is awake, alert and oriented -3. . - Labs CBC & Chem 7: 01/16/17 06:13 01/16/17 06:13 Labs: Abnormal Lab Results - Last 24 Hours (Table) 01/16/17 01/16/17 Range/Units 06:13 06:13 Lymphocytes # 0.6 L (1.0-4.8) k/uL Glucose 168 H (74-99) mg/dL Microbiology - Last 24 Hours (Table) 01/15/17 07:00 Urine Culture - Preliminary Urine,Clean Catch Assessment and Plan (1) Atypical chest pain Status: Acute Plan: Patient will undergo echocardiogram today as well as dobutamine echocardiographic study. If her stress test is negative, from cardiology standpoint she may be able to be discharged home. If the stress test is positive, further recommendations then will be made. We will continue to follow. DNP note has been reviewed, I agree with a documented findings and plan of care. Patient was seen and examined.
[2017-01-16] MEDS ORDERED: ATROPINE SULFATE 0.1 MG/ML 10ML SYRINGE ONE (10:24)
[2017-01-16] MEDS: MULTIVITAMINS, THERA 1 EACH TAB PO SCH (11:03)
[2017-01-16] MEDS: PANTOPRAZOLE 40 MG TABLET PO SCH (11:03)
[2017-01-16] MEDS: ASCORBIC ACID 500 MG TAB PO SCH (11:03)
[2017-01-16] MEDS: IBUPROFEN 400 MG TAB PO SCH (11:03)
[2017-01-16 11:10] VITALS: BP 106/70; PULSE 84; TEMP 97.3
[2017-01-16 11:23] LABS: Glucose,Whole Blood 158 mg/dL (75-99)
--- NOTE | 2017-01-16 12:59 | ECHOS ---
DATE OF SERVICE: 01/16/2017 AGE: 51Y SEX: F HT: 65" WT: 214 lbs. Protocol Alverto: Others: Dobutamine Stress Echo Stage: 4 Dur. of Exercise: 9:45 *Heart Rate Blood Pressure *Rest: 71 Rest: 133/70 * *Max. Achieved: 148 Maximum BP: 145/41 85% PMHR: 143 100% PMHR: 168 *METS: - INDICATIONS: Chest pain. MEDICATIONS: Calcium, magnesium, zinc, vitamin C, Benadryl. Baseline rhythm is sinus mechanism, rate of 71, normal axis and intervals, rare PVCs, poor R-wave progression. Baseline blood pressure 133/70 mmHg. Patient received an infusion of dobutamine and subsequently 0.5 mg of intravenous atropine. Peak rate 148 beats per minute which is equal to 89% of maximum predicted heart rate. Peak blood pressure 145/41 mmHg. Electrocardiograph monitoring revealed occasional PVCs. There was no evidence of diagnostic ischemic ST deviation. FINDINGS: Baseline echocardiogram revealed normal wall motion. At peak exercise, there was normal wall motion augmentation with no hypokinesis or dyskinesis. CONCLUSION: 1. Normal electrocardiograph response to dobutamine infusion with occasional premature ventricular contractions. 2. Normal stress echocardiogram with no evidence of stress-induced ischemia.
--- NOTE | 2017-01-17 11:59 | DS ---
DATE OF ADMISSION: 01/13/2017 DATE OF DISCHARGE: 01/16/2017 DATE OF SERVICE: 01/16/2017 FINAL DIAGNOSES: 1. Chest pain, possibly musculoskeletal. 2. Shortness of breath, pulmonary embolism ruled out. 3. Increased D-dimer. 4. Increased random blood sugar. 5. Family history of coagulopathy. 6. Cholecystectomy. 7. History of tubal ligation. 8. History of anxiety. 9. Increased LDH. 10. Obesity with body mass index of 39. 11. FULL CODE. DISCHARGE DISPOSITION: The patient will be discharged in stable condition with guarded prognosis. HISTORY OF PRESENT ILLNESS: This 51-year-old woman with a past medical history of multiple medical problems was admitted with shortness of breath and chest pain. The V/Q scan negative. CT scan also showed evidence of pulmonary embolism. Patient was seen by Dr. Hodges and Dr. Oshea and dobutamine stress echo was done, which showed normal stress echo with no evidence of stress-induced ischemia. On exam, vitals are stable. CARDIOVASCULAR: S1 and S2 muffled. ABDOMEN: Soft. NERVOUS SYSTEM: No focal deficits DISCHARGE ADVICE: 1. Diet is cardiac. 2. Activity limited until followup. 3. Follow up with Dr. Escamilla in 2 to 3 days. 4. Follow up with Dr. Hodges as advised. Medications are: 1. Vitamin C 500 mg p.o. daily. 2. Lipitor 10 mg q.h.s. 3. Calcium with magnesium with zinc 1 p.o. daily. 4. Multivitamins 1 p.o. daily. 5. Benadryl 25 mg p.r.n. 6. Prednisone 10 mg, that is taper 40 mg daily for 3 days, 30 for 3 days, 20 for 3 days, 10 for 3 days and discontinue.
== END 2017-01-16 14:02 | disposition home or self-care (01) | DRG 313 ==
LOC: EC 10:44 → 6SEL 14:35
PROVIDERS: ADMIT Hospitalist; ATTEND Hospitalist
PROC: 4A12XM4 Monitoring of Cardiac Stress, External Approach (ICD-10-PCS; principal; 2017-01-16)
PROC: 3E073KZ Introduction of Other Diagnostic Substance into Coronary Artery, Percutaneous Approach (ICD-10-PCS; 2017-01-16)
PROC: B246ZZZ Ultrasonography of Right and Left Heart (ICD-10-PCS; 2017-01-16)
DX: R07.89 Other chest pain (principal); E66.9 Obesity, unspecified; R06.02 Shortness of breath; R59.0 Localized enlarged lymph nodes; R91.8 Other nonspecific abnormal finding of lung field; R73.09 Other abnormal glucose; R79.89 Other specified abnormal findings of blood chemistry; R21 Rash and other nonspecific skin eruption; I49.3 Ventricular premature depolarization; L29.9 Pruritus, unspecified; F41.9 Anxiety disorder, unspecified; Z98.51 Tubal ligation status; Z68.39 Body mass index [BMI] 39.0-39.9, adult; Z90.49 Acquired absence of other specified parts of digestive tract; Z83.3 Family history of diabetes mellitus; Z80.3 Family history of malignant neoplasm of breast; Z83.2 Family history of diseases of the blood and blood-forming organs and certain disorders involving the immune mechanism; Z79.899 Other long term (current) drug therapy; Z80.9 Family history of malignant neoplasm, unspecified; Z84.1 Family history of disorders of kidney and ureter; Z82.49 Family history of ischemic heart disease and other diseases of the circulatory system
CPT/HCPCS: 36415; 71020; 71275; 78582; 80048; 80053; 80061; 80306; 81003; 82550; 82553; 83690; 83735; 84484; 85025; 85379; 85610; 85730; 87086; 93005; 93017; 93306; 93350; 93970; 96361; 96365; 96375; 96376; 99291

== ENCOUNTER 2017-07-18 09:53 | Observation (INO) | payer OTHER ==
[2017-07-18] MEDS ORDERED: SODIUM CHLORIDE 0.9% 1,000 ML IV STA (10:10)
[2017-07-18] MEDS ORDERED: MORPHINE SULFATE 4 MG/ML SYRINGE IV STA (10:10)
--- NOTE | 2017-07-18 10:37 | ED ---
General Adult HPI - General Chief complaint: Chest Pain Stated complaint: Chest Pains Time Seen by Provider: 07/18/17 10:04 Source: patient, RN notes reviewed, old records reviewed Mode of arrival: wheelchair Limitations: no limitations - History of Present Illness Initial comments: This is a 51-year-old female to the ER for evaluation. This patient presents for evaluation regarding chest pain. Patient to call distress. Patient states she's had pain in it. Patient does have history of PE that is obtained from chart. Patient is not cooperative historian, patient not cooperating during questioning. Per patient effervescing about that she have history of PE, she states yes and is currently not on blood thinner - Related Data Home Medications Medication Instructions Recorded Confirmed diphenhydrAMINE [Benadryl] 50 mg PO Q4H 01/13/17 07/18/17 Previous Rx's Medication Instructions Recorded Multivitamins, Thera [Multivitamin 1 each PO DAILY@1200 #30 tab 01/16/17 (formulary)] Allergies Allergy/AdvReac Type Severity Reaction Status Date / Time No Known Allergies Allergy Verified 07/18/17 10:30 Review of Systems ROS Statement: Those systems with pertinent positive or pertinent negative responses have been documented in the HPI. ROS Other: All systems not noted in ROS Statement are negative. Past Medical History Past Medical History: No Reported History History of Any Multi-Drug Resistant Organisms: None Reported Past Surgical History: Cholecystectomy, Tubal Ligation Past Anesthesia/Blood Transfusion Reactions: No Reported Reaction Additional Past Anesthesia/Blood Transfusion Reaction / Comment(s): Patient stated that she has not had a blood transfusion. Also had no reaction to anesthesia in the past Past Psychological History: No Psychological Hx Reported, Anxiety Smoking Status: Never smoker Past Alcohol Use History: None Reported Past Drug Use History: None Reported - Past Family History Mother Family Medical History: Cancer, Diabetes Mellitus Additional Family Medical History / Comment(s): "heart problems". Breast cancer. Kidney failure General Exam Limitations: no limitations General appearance: alert, in no apparent distress, obese Head exam: Present: atraumatic, normocephalic, normal inspection Eye exam: Present: normal appearance, PERRL, EOMI. Absent: scleral icterus, conjunctival injection, periorbital swelling ENT exam: Present: normal exam, mucous membranes moist Neck exam: Present: normal inspection. Absent: tenderness, meningismus, lymphadenopathy Respiratory exam: Present: normal lung sounds bilaterally. Absent: respiratory distress, wheezes, rales, rhonchi, stridor Cardiovascular Exam: Present: regular rate, normal rhythm, normal heart sounds. Absent: systolic murmur, diastolic murmur, rubs, gallop, clicks GI/Abdominal exam: Present: soft, normal bowel sounds. Absent: distended, tenderness, guarding, rebound, rigid Extremities exam: Present: normal inspection, full ROM, normal capillary refill. Absent: tenderness, pedal edema, joint swelling, calf tenderness Back exam: Present: normal inspection Neurological exam: Present: alert, oriented X3, CN II-XII intact Psychiatric exam: Present: normal affect, normal mood Skin exam: Present: warm, dry, intact, normal color. Absent: rash Course Vital Signs 07/18/17 07/18/17 07/18/17 09:55 11:00 11:27 Temperature 98.7 F Pulse Rate 83 82 74 Respiratory 20 18 16 Rate Blood Pressure 128/80 165/79 141/80 O2 Sat by Pulse 99 100 100 Oximetry - Reevaluation(s) Reevaluation #1: 07/18/17 10:37 Medical records are reviewed showing positive PE history Reevaluation #2: 07/18/17 12:59 Patient is difficulty IV start, unable to get CTA of chest at this time secondary to poor recall, patient sent for nuclear medicine, VQ scan. EKG Findings - EKG Comments: EKG Findings:: EKG shows normal sinus rhythm rate of 80, MI 150, QRS 72, QTC 449 Medical Decision Making - Medical Decision Making 51 female to the ER for evaluation or chest pain. History of PE, not on anticoagulation, unable to get a CT of the patient did have the skew scan which is low probability for PE, patient will be admitted for chest pain observation, anticoagulation - Lab Data Result diagrams: 07/18/17 10:35 07/18/17 10:35 Lab Results 07/18/17 07/18/17 07/18/17 Range/Units 10:35 10:35 10:35 WBC 6.3 (3.8-10.6) k/uL RBC 4.85 (3.80-5.40) m/uL Hgb 12.8 (11.4-16.0) gm/dL Hct 40.5 (34.0-46.0) % MCV 83.5 (80.0-100.0) fL MCH 26.4 (25.0-35.0) pg MCHC 31.6 (31.0-37.0) g/dL RDW 17.2 H (11.5-15.5) % Plt Count 337 (150-450) k/uL Neutrophils % 71 % Lymphocytes % 21 % Monocytes % 4 % Eosinophils % 2 % Basophils % 0 % Neutrophils # 4.4 (1.3-7.7) k/uL Lymphocytes # 1.3 (1.0-4.8) k/uL Monocytes # 0.3 (0-1.0) k/uL Eosinophils # 0.1 (0-0.7) k/uL Basophils # 0.0 (0-0.2) k/uL Anisocytosis Slight PT (9.0-12.0) sec INR (<1.2) APTT (22.0-30.0) sec D-Dimer (<0.60) mg/L FEU Sodium 140 (137-145) mmol/L Potassium 4.4 (3.5-5.1) mmol/L Chloride 106 (98-107) mmol/L Carbon Dioxide 24 (22-30) mmol/L Anion Gap 10 mmol/L BUN 9 (7-17) mg/dL Creatinine 0.86 (0.52-1.04) mg/dL Est GFR (MDRD) Af Amer >60 (>60 ml/min/1.73 sqM) Est GFR (MDRD) Non-Af >60 (>60 ml/min/1.73 sqM) Glucose 103 H (74-99) mg/dL Calcium 9.4 (8.4-10.2) mg/dL Magnesium 1.9 (1.6-2.3) mg/dL Total Bilirubin 0.5 (0.2-1.3) mg/dL AST 19 (14-36) U/L ALT 29 (9-52) U/L Alkaline Phosphatase 73 (38-126) U/L Total Creatine Kinase 76 (30-135) U/L CK-MB (CK-2) 0.6 (0.0-2.4) ng/mL CK-MB (CK-2) Rel Index 0.8 Troponin I <0.012 (0.000-0.034) ng/mL NT-Pro-B Natriuret Pep pg/mL Total Protein 7.1 (6.3-8.2) g/dL Albumin 4.0 (3.5-5.0) g/dL Lipase 70 (23-300) U/L 07/18/17 07/18/17 Range/Units 10:35 10:35 WBC (3.8-10.6) k/uL RBC (3.80-5.40) m/uL Hgb (11.4-16.0) gm/dL Hct (34.0-46.0) % MCV (80.0-100.0) fL MCH (25.0-35.0) pg MCHC (31.0-37.0) g/dL RDW (11.5-15.5) % Plt Count (150-450) k/uL Neutrophils % % Lymphocytes % % Monocytes % % Eosinophils % % Basophils % % Neutrophils # (1.3-7.7) k/uL Lymphocytes # (1.0-4.8) k/uL Monocytes # (0-1.0) k/uL Eosinophils # (0-0.7) k/uL Basophils # (0-0.2) k/uL Anisocytosis PT 10.2 (9.0-12.0) sec INR 1.0 (<1.2) APTT 22.7 (22.0-30.0) sec D-Dimer 32.98 H (<0.60) mg/L FEU Sodium (137-145) mmol/L Potassium (3.5-5.1) mmol/L Chloride (98-107) mmol/L Carbon Dioxide (22-30) mmol/L Anion Gap mmol/L BUN (7-17) mg/dL Creatinine (0.52-1.04) mg/dL Est GFR (MDRD) Af Amer (>60 ml/min/1.73 sqM) Est GFR (MDRD) Non-Af (>60 ml/min/1.73 sqM) Glucose (74-99) mg/dL Calcium (8.4-10.2) mg/dL Magnesium (1.6-2.3) mg/dL Total Bilirubin (0.2-1.3) mg/dL AST (14-36) U/L ALT (9-52) U/L Alkaline Phosphatase (38-126) U/L Total Creatine Kinase (30-135) U/L CK-MB (CK-2) (0.0-2.4) ng/mL CK-MB (CK-2) Rel Index Troponin I (0.000-0.034) ng/mL NT-Pro-B Natriuret Pep 43 pg/mL Total Protein (6.3-8.2) g/dL Albumin (3.5-5.0) g/dL Lipase (23-300) U/L - Radiology Data Radiology results: report reviewed (Chest x-ray reviewed PE VQ scan negative), image reviewed Critical Care Time Critical Care Time: Yes Total Critical Care Time: 31 Disposition Clinical Impression: Atypical chest pain, Chest pain Disposition: ADMITTED IP TO THIS HOSP Condition: Fair Instructions: Chest Pain (ED) Referrals: Charisma Escamilla MD [Primary Care Provider] - 1-2 days
--- NOTE | 2017-07-18 11:05 | XR ---
EXAMINATION TYPE: XR chest 2V DATE OF EXAM: 07/18/2017 COMPARISON: Chest x-ray and CTA chest January 13, 2017 HISTORY: Chest pain today TECHNIQUE: Frontal and lateral views of the chest are obtained. FINDINGS: There is no focal air space opacity, pleural effusion, or pneumothorax seen. The cardiac silhouette size is within normal limits. The osseous structures are intact. Cholecystectomy clips a re redemonstrated. IMPRESSION: No acute process. No significant change from prior.
[2017-07-18 11:09] LABS: Anisocytosis Slight; Basophils % (A) 0 %; CH 26.9; CHCM 32.3; Eosinophils # (A) 0.1 k/uL (0-0.7); Eosinophils % (A) 2 %; HCT 40.5 % (34.0-46.0); HDW 2.55; HGB 12.8 gm/dL (11.4-16.0); Luc # (Auto) 0.13; Luc % (Auto) 2; Lymphocytes # (A) 1.3 k/uL (1.0-4.8); Lymphocytes % (A) 21 %; MCH 26.4 pg (25.0-35.0); MCHC 31.6 g/dL (31.0-37.0); MCV 83.5 fL (80.0-100.0); Mean Platelet Volume 8.1; Monocytes # (A) 0.3 k/uL (0-1.0); Monocytes % (A) 4 %; Neutrophils # (A) 4.4 k/uL (1.3-7.7); Neutrophils % (A) 71 %; RBC 4.85 m/uL (3.80-5.40); RDW 17.2 % (11.5-15.5); WBC 6.3 k/uL (3.8-10.6); WBC (Perox) 6.71
[2017-07-18] MEDS ORDERED: RX INFO: IV CONTRAST WAS GIVEN 1 EACH MISC MISCELLANE PRN (11:20)
[2017-07-18 11:28] LABS: ALT 29 U/L (9-52); AST 19 U/L (14-36); Alkaline Phosphatase 73 U/L (38-126); Anion Gap 10 mmol/L; Blood Urea Nitrogen 9 mg/dL (7-17); Calcium 9.4 mg/dL (8.4-10.2); Carbon Dioxide 24 mmol/L (22-30); Chloride 106 mmol/L (98-107); Glucose 103 mg/dL (74-99); Magnesium 1.9 mg/dL (1.6-2.3); Non-African American GFR(MDRD) >60 (>60 ml/min/1.73 sqM); Potassium 4.4 mmol/L (3.5-5.1); Sodium 140 mmol/L (137-145); Total Bilirubin 0.5 mg/dL (0.2-1.3); Total Protein 7.1 g/dL (6.3-8.2)
[2017-07-18 11:31] LABS: Partial Thromboplastin Time 22.7 sec (22.0-30.0); Prothrombin Time 10.2 sec (9.0-12.0)
[2017-07-18 11:43] LABS: Creatine Kinase 76 U/L (30-135)
[2017-07-18 11:56] LABS: Creatine Kinase MB 0.6 ng/mL (0.0-2.4); Troponin I <0.012 ng/mL (0.000-0.034)
--- NOTE | 2017-07-18 13:56 | NM ---
EXAMINATION TYPE: NM pul vent and perfuse DATE OF EXAM: 07/18/2017 COMPARISON: Chest x-ray 07/18/2017 HISTORY: Short of breath TECHNIQUE: Utilizing inhalation of 73.9 mCi Tc 99m DTPA aerosol and intravenous injection of 5.93 mC i of Tc 99m MAA, ventilation and perfusion images are acquired post injection in multiple projections . FINDINGS: Normal radiotracer distribution is noted in the lungs. There is no evidence of mismatched defects. IMPRESSION: Low probability for acute pulmonary embolism.
[2017-07-18] MEDS ORDERED: MORPHINE SULFATE 4 MG/ML SYRINGE IV PRN (14:09)
[2017-07-18] MEDS ORDERED: HEPARIN SODIUM,PORCINE 5,000 UNIT/ML 1 ML VIAL IV PRN (14:09)
[2017-07-18] MEDS ORDERED: HEPARIN SODIUM,PORCINE 5,000 UNIT/ML 1 ML VIAL IV ONE (14:09)
[2017-07-18] MEDS ORDERED: ASPIRIN 81 MG PO STA (14:09)
[2017-07-18] MEDS ORDERED: NITROGLYCERIN SL TABS 0.4 MG TAB SUBLINGUAL PRN (14:09)
[2017-07-18] MEDS ORDERED: HEPARIN SODIUM,PORCINE/D5W PMX 25,000 UNIT in DEXTROSE/WATER 1 500ML.BAG IV SCH (14:15)
[2017-07-18] MEDS ORDERED: TEMAZEPAM 15 MG CAP PO PRN (16:35)
[2017-07-18] MEDS ORDERED: ALPRAZolam 0.25 MG TAB PO PRN (16:35)
[2017-07-18 17:38] LABS: Creatine Kinase 63 U/L (30-135)
[2017-07-18 17:47] LABS: Appearance,Urine Clear (Clear); Bilirubin,Urine Negative (Negative); Glucose,Urine (UA) Negative (Negative); Ketones,Urine Negative (Negative); Leukocyte Esterase,Urine Negative (Negative); Nitrite,Urine Negative (Negative); Protein,Urine Negative (Negative); Specific Gravity,Urine 1.002 (1.001-1.035); UA Billing (MACRO vs. MICRO) CHEM; Urobilinogen,Urine <2.0 mg/dL (<2.0)
[2017-07-18 17:51] LABS: Creatine Kinase MB 0.4 ng/mL (0.0-2.4); Troponin I <0.012 ng/mL (0.000-0.034)
[2017-07-18] MEDS ORDERED: methylPREDNISolone SOD SUCCI 125 MG/2 ML VIAL IV STA (17:55)
--- NOTE | 2017-07-18 18:15 | HP ---
HISTORY AND PHYSICAL DATE OF SERVICE: 07/18/2017. CHIEF COMPLAINT: Chest pain. HISTORY OF PRESENT ILLNESS: This 51-year-old woman with a past medical history of multiple medical problems including pulmonary embolus, history of skin disorder, lactose intolerance, anxiety, history of cholecystectomy, being followed by Dr. Escamilla in the outpatient setting being admitted to [facility] complaining of chest pain. The patient apparently had a loss in the family. One of the patient's nephew's because of drug overdose. The patient is complaining of severe heavy pressure in the anterior part of the chest. At times pulsating and radiating to the back and at times sharp also. There is no history of fever, rigors. No headache, loss of consciousness. Patient did have admission back in December where the patient is evaluated for pulmonary embolism and as well as cardiac issues and was proven to be normal. Patient had dobutamine echo and as well as a V/Q scan at that time. Both were negative. There was no stress induced arrhythmia at this time. There is no history of fever, rigors. No history of headache, loss of consciousness or seizures. No aggravating or relieving factor. No sweating or palpitation at this time. PAST MEDICAL HISTORY: History of pulmonary embolism, history of skin disorder, history of anxiety. MEDICATIONS: Prior to admission include: 1. Benadryl 50 mg q.4h p.r.n. 2. Multivitamins 1 p.o. daily. ALLERGIES: None. FAMILY HISTORY: History of cancer, diabetes mellitus and heart problems. SOCIAL HISTORY: No history of smoking, no history of alcohol intake. REVIEW OF SYSTEMS: ENT: No diminished vision or hearing. CARDIOVASCULAR: As mentioned earlier. RESPIRATORY: As mentioned earlier. GI: No nausea. : No dysuria. NERVOUS SYSTEM: No numbness, weakness. ALLERGY/IMMUNOLOGY: No asthma or hayfever. MUSCULOSKELETAL: As mentioned. HEMATOLOGY: No history of anemia. ENDOCRINE: No history of diabetes or hypothyroidism. CONSTITUTIONAL: As mentioned earlier. DERMATOLOGY: Negative. RHEUMATOLOGY: Negative. PSYCHIATRY: As mentioned earlier. PHYSICAL EXAM: Patient is alert, oriented x3. The pulse is 78, blood pressure 147/81, respiration 18, temperature 97.4, pulse ox 95% on 2 L. HEENT: Conjunctivae normal. Oral mucosa moist. NECK: No jugular venous distention. No carotid bruit. No lymph node enlargement. CARDIOVASCULAR: S1, S2. No S3, no S4. RESPIRATORY: Breath sounds diminished in the bases. No rhonchi. No crackles. ABDOMEN: Soft, nontender. No mass palpable. LEGS: No edema, no swelling. NERVOUS SYSTEM: Higher functions as mentioned. Moves all four limbs. No focal motor or sensory deficits. LYMPHATICS: No lymphadenopathy in the neck, axillae or groin. SKIN: No ulcer, rash or bleeding. Skin lesions present. LABS: D-dimer is 32.9, and 103. ASSESSMENT: 1. Chest pain, possible unstable angina, possibly musculoskeletal. 2. Previous negative cardiac workup. 3. Elevated D-dimer with low probability of pulmonary embolism. 4. History of pulmonary embolus. 5. History lactose intolerance. 6. History of diffuse skin lesions, hyperpigmented. 7. History of anxiety. RECOMMENDATIONS AND DISCUSSION: This 51-year-old woman who presented with multiple complex medical issues, we will monitor the patient closely. Continue the current management, continue symptomatic treatment. Otherwise at this time I recommend to continue with symptomatic treatment. Closely monitor. IV heparin initiated. Cardiology consultation. We will review the results of the previous stress test. I would recommend a repeat 2D echo with Doppler. We will continue to monitor. Guarded prognosis because of multiple complex medical issues. Further recommendations to follow. Discussed with the patient and family who understands and agrees. MMODL / IJN: [id number] / MTDD
[2017-07-18 23:04] LABS: Creatine Kinase 55 U/L (30-135)
[2017-07-18 23:16] LABS: Creatine Kinase MB 0.5 ng/mL (0.0-2.4); Troponin I <0.012 ng/mL (0.000-0.034)
[2017-07-19 07:20] LABS: Anisocytosis Slight; Basophils % (A) 0 %; CH 26.8; CHCM 31.3; Eosinophils % (A) 0 %; HCT 45.6 % (34.0-46.0); HDW 2.49; Hypochromasia Slight; Luc # (Auto) 0.03; Luc % (Auto) 0; Lymphocytes # (A) 0.9 k/uL (1.0-4.8); Lymphocytes % (A) 10 %; MCH 26.2 pg (25.0-35.0); MCHC 30.6 g/dL (31.0-37.0); MCV 85.6 fL (80.0-100.0); Mean Platelet Volume 8.5; Monocytes # (A) 0.1 k/uL (0-1.0); Monocytes % (A) 1 %; Neutrophils # (A) 8.1 k/uL (1.3-7.7); Neutrophils % (A) 88 %; RBC 5.33 m/uL (3.80-5.40); RDW 17.2 % (11.5-15.5); WBC 9.2 k/uL (3.8-10.6); WBC (Perox) 9.16
[2017-07-19] MEDS ORDERED: PANTOPRAZOLE 40 MG TABLET PO SCH (07:30)
[2017-07-19 07:36] LABS: Anion Gap 10 mmol/L; Blood Urea Nitrogen 9 mg/dL (7-17); Calcium 9.1 mg/dL (8.4-10.2); Carbon Dioxide 23 mmol/L (22-30); Chloride 107 mmol/L (98-107); Cholesterol 157 mg/dL (<200); Glucose 171 mg/dL (74-99); HDL Cholesterol 54 mg/dL (40-60); Non-African American GFR(MDRD) >60 (>60 ml/min/1.73 sqM); Sodium 140 mmol/L (137-145)
--- NOTE | 2017-07-19 08:59 | P.CRDCN ---
History of Present Illness History of present illness: Patient admitted with recurrent stabbing chest discomfort going through to the back. Normal blood pressures Normal cardiac enzymes CT of the chest previously showed lung nodules, no evidence for pulmonary embolism. At that time she was seen by Dr. Oshea in December 2016 Echo was normal, dobutamine stress echo did not show any evidence for ischemia Today examination is normal heart sounds are normal no murmurs BMI 39.8 Nondiabetic, nonhypertensive nonsmoker Suggest Stop heparin Workup for her lung nodules which needed a follow-up CT in 6 months, will defer to admitting physician Discomfort appears noncardiac She also has swelling in her eyelids and lips and and immunology/ALLERGY evaluation would be appropriate Lipid panel is excellent May go to the medical floor for further workup without telemetry Past Medical History Past Medical History: Pulmonary Embolus (PE), Skin Disorder Additional Past Medical History / Comment(s): lactose intolerance, mild anxiety, "gallstones-had sx), bells palsy," pulmonary nodules" History of Any Multi-Drug Resistant Organisms: None Reported Past Surgical History: Cholecystectomy, Tubal Ligation Past Anesthesia/Blood Transfusion Reactions: No Reported Reaction Additional Past Anesthesia/Blood Transfusion Reaction / Comment(s): Patient stated that she has not had a blood transfusion. Also had no reaction to anesthesia in the past Smoking Status: Never smoker - Past Family History Mother Family Medical History: Cancer, Diabetes Mellitus Additional Family Medical History / Comment(s): "heart problems". Breast cancer. Kidney failure Sister(s) Family Medical History: Osteoarthritis (OA) Additional Family Medical History / Comment(s): ddd,scoliosis Medications and Allergies Home Medications Medication Instructions Recorded Confirmed Type diphenhydrAMINE [Benadryl] 50 mg PO Q4H 01/13/17 07/18/17 History Multivitamins, Thera [Multivitamin 1 each PO DAILY@1200 #30 tab 01/16/17 Rx (formulary)] Allergies Allergy/AdvReac Type Severity Reaction Status Date / Time No Known Allergies Allergy Verified 07/18/17 10:30 Physical Exam Vitals: Vital Signs Temp Pulse Pulse Resp BP BP Pulse Ox 07/19/17 08:00 97.8 F 67 18 106/65 99 07/19/17 04:00 97.7 F 75 16 119/65 96 07/19/17 00:00 16 07/18/17 23:51 97.6 F 80 16 109/65 100 07/18/17 20:00 18 07/18/17 17:46 75 18 07/18/17 16:00 75 18 07/18/17 15:52 97.5 F L 75 18 118/69 100 07/18/17 15:31 78 18 147/81 95 07/18/17 11:27 74 16 141/80 100 07/18/17 11:00 82 18 165/79 100 07/18/17 09:55 98.7 F 83 20 128/80 99 Intake and Output 07/18/17 07/19/17 07/19/17 22:59 06:59 14:59 Intake Total 166.417 Balance 166.417 Intake: Intake, IV Titration 166.417 Amount Heparin Sodium,Porcine/ 166.417 D5w Pmx 25,000 unit In Dextrose/Water 1 500ml. bag @ 11.2 UNITS/KG/HR 20 .01 mls/hr IV .Q24H [facility] Rx#:[id number] Other: Voiding Method Toilet Toilet # Voids 1 1 Weight 108.5 kg Results 07/19/17 06:33 07/19/17 06:33 Cardiac Enzymes 07/18/17 07/18/17 07/18/17 Range/Units 10:35 10:35 16:55 AST 19 (14-36) U/L CK-MB (CK-2) 0.6 0.4 (0.0-2.4) ng/mL Troponin I <0.012 <0.012 (0.000-0.034) ng/mL 07/18/17 Range/Units 22:22 AST (14-36) U/L CK-MB (CK-2) 0.5 (0.0-2.4) ng/mL Troponin I <0.012 (0.000-0.034) ng/mL Coagulation 07/18/17 07/18/17 07/19/17 Range/Units 10:35 22:22 06:33 PT 10.2 (9.0-12.0) sec APTT 22.7 36.9 H 84.9 H (22.0-30.0) sec Lipids 07/19/17 Range/Units 06:33 Triglycerides 94 (<150) mg/dL Cholesterol 157 (<200) mg/dL HDL Cholesterol 54 (40-60) mg/dL CBC 07/18/17 07/19/17 Range/Units 10:35 06:33 WBC 6.3 9.2 (3.8-10.6) k/uL RBC 4.85 5.33 (3.80-5.40) m/uL Hgb 12.8 14.0 (11.4-16.0) gm/dL Hct 40.5 45.6 (34.0-46.0) % Plt Count 337 359 (150-450) k/uL Comprehensive Metabolic Panel 07/18/17 07/19/17 Range/Units 10:35 06:33 Sodium 140 140 (137-145) mmol/L Potassium 4.4 5.0 (3.5-5.1) mmol/L Chloride 106 107 (98-107) mmol/L Carbon Dioxide 24 23 (22-30) mmol/L BUN 9 9 (7-17) mg/dL Creatinine 0.86 0.70 (0.52-1.04) mg/dL Glucose 103 H 171 H (74-99) mg/dL Calcium 9.4 9.1 (8.4-10.2) mg/dL AST 19 (14-36) U/L ALT 29 (9-52) U/L Alkaline Phosphatase 73 (38-126) U/L Total Protein 7.1 (6.3-8.2) g/dL Albumin 4.0 (3.5-5.0) g/dL Current Medications Generic Name Dose Route Start Last Admin Trade Name Freq PRN Reason Stop Dose Admin Alprazolam 0.25 mg 07/18/17 16:35 Xanax PO TID PRN Anxiety Aspirin 325 mg 07/19/17 09:00 Aspirin PO DAILY TIA Miscellaneous Information 1 each 07/18/17 11:20 Rx Info: Iv Contrast Was Given MISCELLANE 07/20/17 11:21 DAILY PRN Per Protocol Nitroglycerin 0.4 mg 07/18/17 14:09 Nitrostat SUBLINGUAL Q5M PRN Chest Pain Pantoprazole Sodium 40 mg 07/19/17 07:30 Protonix PO AC-BRKFST TIA Temazepam 15 mg 07/18/17 16:35 Restoril PO HS PRN Insomnia Intake and Output 07/18/17 07/19/17 07/19/17 22:59 06:59 14:59 Intake Total 166.417 Balance 166.417 Intake: Intake, IV Titration 166.417 Amount Heparin Sodium,Porcine/ 166.417 D5w Pmx 25,000 unit In Dextrose/Water 1 500ml. bag @ 11.2 UNITS/KG/HR 20 .01 mls/hr IV .Q24H [facility] Rx#:[id number] Other: Voiding Method Toilet Toilet # Voids 1 1 Weight 108.5 kg 07/19/17 06:33 07/19/17 06:33
[2017-07-19] MEDS ORDERED: ASPIRIN 325 MG TAB PO SCH (09:00)
--- NOTE | 2017-07-19 10:31 | ECHOF ---
Referral Reason:chf MEASUREMENTS -------- HEIGHT: 165.1 cm WEIGHT: 108.4 kg BP: 119/65 IVSd: 1.2 cm (0.6 - 1.1) LVIDd: 4.1 cm (3.9 - 5.3) LVPWd: 1.2 cm (0.6 - 1.1) IVSs: 1.6 cm LVIDs: 1.9 cm LVPWs: 1.9 cm Ao Diam: 2.8 cm (2.0 - 3.7) AV Cusp: 1.8 cm (1.5 - 2.6) LA Diam: 2.4 cm (2.7 - 3.8) MV EXCURSION: 21.171 mm (> 18.000) MV EF SLOPE: 83 mm/s (70 - 150) EPSS: 0.2 cm MV E Derik: 0.64 m/s MV DecT: 252 ms MV A Derik: 0.78 m/s MV E/A Ratio: 0.82 RAP: 5.00 mmHg RVSP: 10.65 mmHg FINDINGS -------- Sinus rhythm. This was a technically good study. There is mild concentric left ventricular hypertrophy. Overall left ventricular systolic function is normal with, an EF between 55 - 60 %. The right ventricle is normal in size and function. The left atrium is normal in size. The right atrium is normal in size. The aortic valve is trileaflet, and appears structurally normal. No aortic stenosis or regurgitation. The mitral valve leaflets are mildly thickened. There is trace mitral regurgitation. Trace tricuspid regurgitation present. The right ventricular systolic pressure, as measured by Doppler, is 10.65mmHg. Pulmonic valve appears structurally normal. The aortic root size is normal. The pericardium is normal. CONCLUSIONS -------- 1. Sinus rhythm. 2. There is trace mitral regurgitation. 3. Trace tricuspid regurgitation present. 4. The right ventricular systolic pressure, as measured by Doppler, is 10.65mmHg. 5. Pulmonic valve appears structurally normal. 6. The aortic root size is normal. 7. The pericardium is normal. 8. This was a technically good study. 9. There is mild concentric left ventricular hypertrophy. 10. Overall left ventricular systolic function is normal with, an EF between 55 - 60 %. 11. The right ventricle is normal in size and function. 12. The left atrium is normal in size. 13. The right atrium is normal in size. 14. The aortic valve is trileaflet, and appears structurally normal. No aortic stenosis or regurgitation. 15. The mitral valve leaflets are mildly thickened. LEAD RELAY TESTER: Zuleika Haney RDCS
[2017-07-19 12:28] VITALS: BP 117/76; PULSE 88; RESP 16; TEMP 98
[2017-07-19] MEDS ORDERED: RX INFO: IV CONTRAST WAS GIVEN 1 EACH MISC MISCELLANE PRN (12:41)
--- NOTE | 2017-07-19 13:32 | P.CRDCN ---
History of Present Illness Consult date: 07/19/17 History of present illness: This is a 51-year-old female. She does not see a intranet support for any reason. We have been asked to see this patient for complaints of chest pain described as stabbing that goes from mid-abdomen to upper chest along the path of the esophagus. This discomfort began Monday and has been intermittent in nature over the past 3 days. She works at [employer] and had to leave work yesterday due to increased weakness. Of note she lost her niece to a drug overdose on Monday and that is when the pain started. She was recently in the hospital in December 2016 with similar discomfort and was worked up for PE but ultimately determined she didn't have a PE but some nodules. At that time it was recommended she follow-up with repeat CT of the chest in 6 months. She has not followed up. Echocardiogram and dobutamine stress echo were normal at that time with no evidence of ischemia. The patient also suffers from unknown inflammatory disorder in which she gets severe generalized swelling. Upon exam this morning her lower lip was swollen. She doesn't take an ANASTASIA inhibitor. This has been going on for over 3 years. She denies tobacco use, nondiabetic, no history of CAD or hypertension. Cardiac enzymes normal x3, elevated D-dimer with negative VQ scan. Review of Systems Extensive review of systems performed, negative except mentioned in HPI. Past Medical History Past Medical History: Pulmonary Embolus (PE), Skin Disorder Additional Past Medical History / Comment(s): lactose intolerance, mild anxiety, "gallstones-had sx), bells palsy," pulmonary nodules" History of Any Multi-Drug Resistant Organisms: None Reported Past Surgical History: Cholecystectomy, Tubal Ligation Past Anesthesia/Blood Transfusion Reactions: No Reported Reaction Additional Past Anesthesia/Blood Transfusion Reaction / Comment(s): Patient stated that she has not had a blood transfusion. Also had no reaction to anesthesia in the past Smoking Status: Never smoker - Past Family History Mother Family Medical History: Cancer, Diabetes Mellitus Additional Family Medical History / Comment(s): "heart problems". Breast cancer. Kidney failure Sister(s) Family Medical History: Osteoarthritis (OA) Additional Family Medical History / Comment(s): ddd,scoliosis Medications and Allergies Home Medications Medication Instructions Recorded Confirmed Type diphenhydrAMINE [Benadryl] 50 mg PO Q4H 01/13/17 07/18/17 History Multivitamins, Thera [Multivitamin 1 each PO DAILY@1200 #30 tab 01/16/17 Rx (formulary)] ALPRAZolam [Xanax] 0.25 mg PO TID PRN #20 tab 07/19/17 Rx Allergies Allergy/AdvReac Type Severity Reaction Status Date / Time No Known Allergies Allergy Verified 07/18/17 10:30 Physical Exam Vitals: Vital Signs Temp Pulse Pulse Resp BP BP Pulse Ox 07/19/17 12:00 98 F 88 16 117/76 99 07/19/17 08:00 97.8 F 67 18 106/65 99 07/19/17 04:00 97.7 F 75 16 119/65 96 07/19/17 00:00 16 07/18/17 23:51 97.6 F 80 16 109/65 100 07/18/17 20:00 18 07/18/17 17:46 75 18 07/18/17 16:00 75 18 07/18/17 15:52 97.5 F L 75 18 118/69 100 07/18/17 15:31 78 18 147/81 95 Intake and Output 07/18/17 07/19/17 07/19/17 22:59 06:59 14:59 Intake Total 166.417 360 Balance 166.417 360 Intake: Intake, IV Titration 166.417 Amount Heparin Sodium,Porcine/ 166.417 D5w Pmx 25,000 unit In Dextrose/Water 1 500ml. bag @ 11.2 UNITS/KG/HR 20 .01 mls/hr IV .Q24H [facility] Rx#:[id number] Oral 360 Other: Voiding Method Toilet Toilet Toilet # Voids 1 1 Weight 108.5 kg GENERAL: This is a 51-year-old -[place] female in no apparent distress at the time of my examination. HEENT: Head is atraumatic, normocephalic. Pupils are equal, round. Sclerae anicteric. Conjunctivae are clear. Mucous membranes of the mouth are moist. Neck is supple. There is no jugular venous distention. No carotid bruit is heard. Lower lip edema. No airway compromise. LUNGS: Clear to auscultation no wheezes, rales or rhonchi. Positive chest wall tenderness is noted on palpation. HEART: Regular rate and rhythm without murmurs, rubs or gallops. S1 and S2 heard. ABDOMEN: Soft, nontender. Bowel sounds are heard. No organomegaly noted. EXTREMITIES: 2+ peripheral pulses with no evidence of peripheral edema and no calf tenderness noted. NEUROLOGIC: Patient is awake, alert and oriented x3. Results 07/19/17 06:33 07/19/17 06:33 Cardiac Enzymes 07/18/17 07/18/17 Range/Units 16:55 22:22 CK-MB (CK-2) 0.4 0.5 (0.0-2.4) ng/mL Troponin I <0.012 <0.012 (0.000-0.034) ng/mL Coagulation 07/18/17 07/19/17 Range/Units 22:22 06:33 APTT 36.9 H 84.9 H (22.0-30.0) sec Lipids 07/19/17 Range/Units 06:33 Triglycerides 94 (<150) mg/dL Cholesterol 157 (<200) mg/dL HDL Cholesterol 54 (40-60) mg/dL CBC 07/19/17 Range/Units 06:33 WBC 9.2 (3.8-10.6) k/uL RBC 5.33 (3.80-5.40) m/uL Hgb 14.0 (11.4-16.0) gm/dL Hct 45.6 (34.0-46.0) % Plt Count 359 (150-450) k/uL Comprehensive Metabolic Panel 07/19/17 Range/Units 06:33 Sodium 140 (137-145) mmol/L Potassium 5.0 (3.5-5.1) mmol/L Chloride 107 (98-107) mmol/L Carbon Dioxide 23 (22-30) mmol/L BUN 9 (7-17) mg/dL Creatinine 0.70 (0.52-1.04) mg/dL Glucose 171 H (74-99) mg/dL Calcium 9.1 (8.4-10.2) mg/dL Current Medications Generic Name Dose Route Start Last Admin Trade Name Freq PRN Reason Stop Dose Admin Alprazolam 0.25 mg 07/18/17 16:35 Xanax PO TID PRN Anxiety Aspirin 325 mg 07/19/17 09:00 07/19/17 09:19 Aspirin PO 325 mg DAILY TIA Administration Miscellaneous Information 1 each 07/18/17 11:20 Rx Info: Iv Contrast Was Given MISCELLANE 07/20/17 11:21 DAILY PRN Per Protocol Miscellaneous Information 1 each 07/19/17 12:41 Rx Info: Iv Contrast Was Given MISCELLANE 07/21/17 12:42 DAILY PRN Per Protocol Nitroglycerin 0.4 mg 07/18/17 14:09 Nitrostat SUBLINGUAL Q5M PRN Chest Pain Pantoprazole Sodium 40 mg 07/19/17 07:30 07/19/17 09:18 Protonix PO 40 mg [id number] TIA Administration Temazepam 15 mg 07/18/17 16:35 Restoril PO HS PRN Insomnia Intake and Output 07/18/17 07/19/17 07/19/17 22:59 06:59 14:59 Intake Total 166.417 360 Balance 166.417 360 Intake: Intake, IV Titration 166.417 Amount Heparin Sodium,Porcine/ 166.417 D5w Pmx 25,000 unit In Dextrose/Water 1 500ml. bag @ 11.2 UNITS/KG/HR 20 .01 mls/hr IV .Q24H [facility] Rx#:[id number] Oral 360 Other: Voiding Method Toilet Toilet Toilet # Voids 1 1 Weight 108.5 kg 07/19/17 06:33 07/19/17 06:33 EKG Interpretations (text) EKG reveals normal sinus mechanism with no acute ST or T-wave abnormality. Assessment and Plan Plan: ASSESSMENT 1. Chest pain, atypical PLAN Discontinue heparin; Workup for lung nodules which needed a follow-up CT in 6 months, will defer to admitting physician; Discomfort appears noncardiac. From a cardiac perspective we'll sign off on this patient. She can be transferred to the medical floor for further workup for her immunology/ALLERGY evaluation as well as pulmonary. Nurse Practitioner note has been reviewed, I agree with a documented findings and plan of care. Patient was seen and examined.
--- NOTE | 2017-07-19 16:02 | CT ---
EXAMINATION TYPE: CT chest w con DATE OF EXAM: 07/19/2017 COMPARISON: 01/13/2017 HISTORY: Patient complains of episode of chest pain. CT DLP: 477 mGycm Automated exposure control for dose reduction was used. CONTRAST: CT scan of the chest is performed with IV Contrast, patient injected with 100 mL of Omnipaque 300. FINDINGS: LUNGS: Scattered tiny pulmonary nodules remain stable with exercise shape and overall number. No nodu les are seen greater than 5 mm. No evidence for focal infiltrate or pleural effusion. No evidence for mass. MEDIASTINUM: There are no greater than 1 cm hilar or mediastinal lymph nodes. No pericardial effusi on is seen. Thoracic aorta is of normal caliber. The heart is not enlarged. UPPER ABDOMEN: No significant abnormality appreciated. OTHER: Stable bilateral axillary adenopathy. IMPRESSION: 1. Stable and nonspecific pulmonary nodularity. 2. Stable axillary adenopathy.
--- NOTE | 2017-07-19 17:09 | P.DS ---
Providers Date of admission: 07/18/17 14:09 Attending physician: Aneta Aleman Primary care physician: Andi Baird [place] [facility] Course: This 57-year-old woman with a past medical history multiple medical problems was admitted chest pain which is located and antibiotics original back. Myocardial infarction ruled out. Patient recently had a stress test. Cardiology saw the patient. Possibility of noncardiac chest pain is considered. Patient did report significant stress associated with the recent loss of a family member to drug overdosage. As mentioned earlier treated symptomatically. Patient improved significantly. Patient will be discharged in a stable condition with guarded prognosis. The patient to follow up closely with the primary physician and as well as cardiology in the outpatient setting. The patient understands and agrees. I also recommended the patient to follow- up with the dermatology closely for evaluation treatment with the emerging skin lesions also. Also the patient had features of pulmonary nodules in the previous CAT scan. Repeat CAT scan was done which showed stable pulmonary nodularity and as well as axillary adenopathy. Final diagnosis. 1. Chest pain possible muscle skeletal. Improved. 2. Previous negative cardiac workup. 3. Elevated d-dimer with a low probable to pulmonary medicine. 4. Stable pulmonary nodules and axillary adenopathy for outpatient follow-up. 5. History of pulmonary embolism. 6. History of lactose intolerance. 7. History of diffuse skin lesions hyperpigmented. 8. History of anxiety. Patient Condition at Discharge: Fair Plan - Discharge Summary New Discharge Prescriptions: New ALPRAZolam [Xanax] 0.25 mg PO TID PRN #20 tab PRN Reason: Anxiety Continue diphenhydrAMINE [Benadryl] 50 mg PO Q4H Multivitamins, Thera [Multivitamin (formulary)] 1 each PO DAILY@1200 #30 tab Discharge Medication List diphenhydrAMINE [Benadryl] 50 mg PO Q4H 01/13/17 [History] Multivitamins, Thera [Multivitamin (formulary)] 1 each PO DAILY@1200 #30 tab [Rx] ALPRAZolam [Xanax] 0.25 mg PO TID PRN #20 tab 07/19/17 [Rx] Follow up Appointment(s)/Referral(s): Nawaf Arcos MD [STAFF PHYSICIAN] - 1 Week (Office Will call Patient at home.) Charisma Escamilla MD [Primary Care Provider] - 3 Days (Call office to make appointment.) Patient Instructions/Handouts: Chest Pain (ED) Activity/Diet/Wound Care/Special Instructions: COnfrim cardiology F/U apt. prior to dc
== END 2017-07-19 18:06 | disposition home or self-care (01) ==
LOC: EC 09:53 → 3OBS 14:09
PROVIDERS: ADMIT Hospitalist; ATTEND Hospitalist
DX: R07.89 Other chest pain (principal); R79.89 Other specified abnormal findings of blood chemistry; R91.8 Other nonspecific abnormal finding of lung field; Z86.711 Personal history of pulmonary embolism; R60.9 Edema, unspecified; R53.1 Weakness; E73.9 Lactose intolerance, unspecified; L81.9 Disorder of pigmentation, unspecified; L98.9 Disorder of the skin and subcutaneous tissue, unspecified; F41.9 Anxiety disorder, unspecified; Z63.4 Disappearance and death of family member; Z68.39 Body mass index [BMI] 39.0-39.9, adult; Z79.899 Other long term (current) drug therapy; Z90.49 Acquired absence of other specified parts of digestive tract; Z83.3 Family history of diabetes mellitus; Z80.3 Family history of malignant neoplasm of breast
CPT/HCPCS: 36415; 71020; 71260; 78582; 80048; 80053; 80061; 80306; 81003; 82550; 82553; 83690; 83735; 83880; 84439; 84443; 84484; 85025; 85379; 85610; 85730; 93005; 93306; 96361; 96365; 96366; 96375; 96376; 99291

== ENCOUNTER 2018-03-26 18:41 | Emergency (ER) | payer OTHER ==
[2018-03-26 18:55] VITALS: RESP 18
[2018-03-26] MEDS ORDERED: predniSONE 20 MG TAB PO STA (19:11)
--- NOTE | 2018-03-26 19:16 | ED ---
General Adult HPI - General Chief complaint: Chest Pain Stated complaint: Rash, Chest Pain Time Seen by Provider: 03/26/18 18:58 Source: patient Mode of arrival: wheelchair Limitations: no limitations - History of Present Illness Initial comments: This 52-year-old -[place] female presents with a complaint of a hive- like rash. She states that it is diffusely throughout her body. She further relates that she has had this intermittently for many years. It is extremely pruritic. She has tried Benadryl for it with limited relief. She states that when she gets that she oftentimes will get some chest pain and shortness of breath. This is exactly like her multiple previous similar incidents. She further relates that she was checked out last year at our hospital for chest pain and had a negative stress test at that time. She denies any other complaints or modifying factors. - Related Data Home Medications Medication Instructions Recorded Confirmed diphenhydrAMINE [Benadryl] 50 mg PO Q4H 01/13/17 07/18/17 Previous Rx's Medication Instructions Recorded Multivitamins, Thera [Multivitamin 1 each PO DAILY@1200 #30 tab 01/16/17 (formulary)] ALPRAZolam [Xanax] 0.25 mg PO TID PRN #20 tab 07/19/17 predniSONE 20 mg PO TID #15 tab 03/26/18 Allergies Allergy/AdvReac Type Severity Reaction Status Date / Time No Known Allergies Allergy Verified 03/26/18 18:55 Review of Systems ROS Statement: Those systems with pertinent positive or pertinent negative responses have been documented in the HPI. ROS Other: All systems not noted in ROS Statement are negative. Past Medical History Past Medical History: Pulmonary Embolus (PE), Skin Disorder Additional Past Medical History / Comment(s): lactose intolerance, mild anxiety, "gallstones-had sx), bells palsy," pulmonary nodules" History of Any Multi-Drug Resistant Organisms: None Reported Past Surgical History: Cholecystectomy, Tubal Ligation Past Anesthesia/Blood Transfusion Reactions: No Reported Reaction Additional Past Anesthesia/Blood Transfusion Reaction / Comment(s): Patient stated that she has not had a blood transfusion. Also had no reaction to anesthesia in the past Past Psychological History: Anxiety Smoking Status: Never smoker Past Alcohol Use History: None Reported Past Drug Use History: None Reported - Past Family History Mother Family Medical History: Cancer, Diabetes Mellitus Additional Family Medical History / Comment(s): "heart problems". Breast cancer. Kidney failure Sister(s) Family Medical History: Osteoarthritis (OA) Additional Family Medical History / Comment(s): ddd,scoliosis General Exam - General Exam Comments Initial Comments: GENERAL: The patient is well nourished and well hydrated. VITAL SIGNS: Heart rate, blood pressure, respiratory rate reviewed as recorded in nurse's notes. EYES: Pupils are round and reactive. Extraocular movements are intact. No conjunctival / lid redness or swelling. ENT: No external evidence of injury, swelling, or ecchymosis. Airway is patent. Throat is clear. NECK: Nontender. No swelling or evidence of injury. No subcutaneous emphysema. Trachea is midline. No thyroid mass. HEART: Regular rate and rhythm. Good peripheral pulses. LUNGS/CHEST: Breath sounds clear and equal bilaterally. No rales, rhonchi, or wheezes. No ecchymosis, subcutaneous emphysema, or tenderness. ABDOMEN: Abdomen soft without tenderness. No palpable masses or organomegaly. No peritoneal signs. No abdominal wall swelling or ecchymosis. EXTREMITIES: No extremity tenderness. Normal muscle tone and function. No thoracolumbar tenderness. NEUROLOGIC: Sensation is grossly intact. Cranial nerve exam reveals face is symmetrical, tongue is midline, speech is clear. SKIN: There are multiple hives present throughout the body. No induration or masses noted. PSYCHIATRIC: Alert and oriented. Appropriate behavior and judgment. Limitations: no limitations Course Vital Signs 03/26/18 18:51 Temperature 98.5 F Pulse Rate 90 Respiratory 18 Rate Blood Pressure 134/71 O2 Sat by Pulse 100 Oximetry Medical Decision Making - Medical Decision Making The patient was seen and examined. It does appear as though she does have multiple hives. She further relates that she has had angioedema of her lips and periorbital region in the past but none currently. She apparently has followed up with a bakery clerk as well as a electronic transaction implementer in the past and they're unsure what is causing her symptoms. She has not followed up with an electronic transaction implementer recently. She is not interested in getting checked out in regard to her chest pain and shortness of breath as she states that this will occur all the time when she gets these symptoms, multiple times a year. She states this is exactly the same as previous. She was offered workup for her heart and admission to the hospital but she refuses and would prefer to get steroids. She states that steroids are the only thing that has helped her in the past. She is given 60 mg of prednisone in the ER. Disposition Clinical Impression: Hives, Allergic reaction, Chest pain Disposition: HOME SELF-CARE Condition: Good Instructions: Urticaria (ED), Chest Pain (ED) Additional Instructions: Please follow up with the electronic transaction implementer Dr. Roddy Mccauley. His number is . Prescriptions: predniSONE 20 mg PO TID #15 tab Is patient prescribed a controlled substance at d/c from ED?: No Referrals: None,Stated [Primary Care Provider] - 1-2 days Time of Disposition: 19:15
[2018-03-26 19:45] VITALS: BP 139/76; PULSE 84; TEMP 98.1
== END 2018-03-26 19:45 | disposition home or self-care (01) ==
LOC: EC 18:41
DX: L50.0 Allergic urticaria (principal); R07.9 Chest pain, unspecified; R06.02 Shortness of breath; Z79.899 Other long term (current) drug therapy
CPT/HCPCS: 93005; 99284; J7512